=== PATIENT | female | born 1935 | race Caucasian/White ===

== ENCOUNTER → 2017-04-14 | Outpatient (CLI) | payer OTHER, MEDICARE ==
[2017-04-14 16:06] LABS: HEMATOCRIT 29.8 % (37-47); MEAN CELL VOLUME 91.1 fL (80-100); MEAN CORPUSCULAR HEMOGLOBIN 30.3 pg (25-34); MEAN CORPUSCULAR HGB CONC 33.2 g/dl (32-36); MEAN PLATELET VOLUME 10.4 fL (7.4-10.4); PLATELET COUNT 249 K/uL (130-400); RED BLOOD COUNT 3.27 M/uL (4.2-5.4); WHITE BLOOD COUNT 6.31 K/uL (4.8-10.8)
[2017-04-14 16:15] LABS: FERRITIN 20.7 ng/ml (8.0-388.0)
== END | disposition home or self-care (01) ==
LOC: C.LAB1850 14:59
PROVIDERS: ATTEND Internal Medicine
DX: D64.9 Anemia, unspecified (principal)

== ENCOUNTER → 2017-04-17 | Outpatient (CLI) | payer OTHER, MEDICARE ==
--- NOTE | 2017-04-29 13:19 | CODING QUERY MEDICAL NECESSITY ---
CQSUPPORTING DIAGNOSIS NEEDED A supporting diagnosis is required for the test/procedure performed on this patient in order for us to be reimbursed by the patient's insurance. Please provide a supporting diagnosis for the following test/procedure listed below next to the test name along with your signature. *If there is no additional diagnosis for this patient that would support the following test/procedure please document that below next to the test/procedure. Test(s)/Procedure(s) that require a supporting diagnosis: DOS 04/17/17 VITAMIN B12 TEST Provider Signature: Date: Thank you [facility] Once completed, please kindly fax back to [phone] For questions please call [phone]
== END | disposition home or self-care (01) ==
LOC: C.LAB1850 10:32
PROVIDERS: ATTEND Internal Medicine
DX: D64.9 Anemia, unspecified (principal)

== ENCOUNTER → 2017-07-07 | Outpatient (CLI) | payer OTHER, MEDICARE | END | disposition home or self-care (01) | LOC: C.LABSPEC 17:06 | PROVIDERS: ATTEND Podiatrist Foot & Ankle Surgery | DX: L60.0 Ingrowing nail (principal) ==

== ENCOUNTER → 2017-10-22 | Outpatient (CLI) | payer OTHER, MEDICARE ==
[2017-10-22 12:18] LABS: HEMATOCRIT 37.9 % (37-47); HEMOGLOBIN 12.5 g/dL (12.0-16.0); MEAN CELL VOLUME 84.8 fL (80-100); PLATELET COUNT 201 K/uL (130-400); RED CELL DISTRIBUTION WIDTH CV 14.4 % (11.5-14.5); RED CELL DISTRIBUTION WIDTH SD 44.4 fL (36.4-46.3); WHITE BLOOD COUNT 5.31 K/uL (4.8-10.8)
[2017-10-22 17:03] LABS: ALBUMIN 3.6 gm/dl (3.4-5.0); ALT/SGPT 18 U/L (12-78); BLOOD UREA NITROGEN 21 mg/dl (7-18); CALCIUM 9.2 mg/dl (8.5-10.1); CARBON DIOXIDE 27 mmol/L (21-32); CHOLESTEROL 147 mg/dl (0-200); CREATININE 1.04 mg/dl (0.60-1.20); GLUCOSE 119 mg/dl (70-99); POTASSIUM 4.3 mmol/L (3.5-5.1); SODIUM 140 mmol/L (136-145)
[2017-10-22 17:06] LABS: ALKALINE PHOSPHATASE 83 U/L (45-117); AST/SGOT 17 U/L (15-37); LDL CHOLESTEROL CALCULATED 68 mg/dl; TOTAL PROTEIN 7.3 gm/dl (6.4-8.2)
== END | disposition home or self-care (01) ==
LOC: C.LAB1850 10:55
PROVIDERS: ATTEND Internal Medicine
DX: Z00.00 Encounter for general adult medical examination without abnormal findings (principal); E78.5 Hyperlipidemia, unspecified; D64.9 Anemia, unspecified; I10 Essential (primary) hypertension; I25.10 Atherosclerotic heart disease of native coronary artery without angina pectoris

== ENCOUNTER → 2018-02-24 | Outpatient (CLI) | payer OTHER, MEDICARE ==
--- NOTE | 2018-03-03 14:42 | MAMMOGRAPHY REPORT ---
UNILATERAL RIGHT DIGITAL SCREENING MAMMOGRAM TOMOSYNTHESIS WITH CAD: 02/24/2018 CLINICAL HISTORY: Asymptomatic. Personal history of breast cancer. TECHNIQUE: The study was acquired using full field digital technology and interpreted from soft copy. Breast tomosynthesis in addition to standard 2D mammography was performed. Current study was also ev aluated with a Computer Aided Detection (CAD) system. COMPARISON: Comparison is made to exams dated: 11/29/2016 mammogram, 11/29/2015 mammogram, 11/02/2014 mamm ogram, 10/12/2013 mammogram, and 09/28/2012 mammogram - [facility]. BREAST COMPOSITION: There are scattered areas of fibroglandular density in right breast. FINDINGS: There are stable benign rim calcifications in the right breast. Stable asymmetry in the sl ightly lateral, middle one third of the right breast on the cc view. No suspicious mass, architectura l distortion or cluster of microcalcifications is seen. IMPRESSION: ACR BI-RADS CATEGORY 1: NEGATIVE There is no mammographic evidence of malignancy. A 1 year screening mammogram is recommended.( [id number]) The patient will receive written notification of the results. Some breast cancers are not detected with mammography. A negative mammographic report should not marques y biopsy if a clinically suggestive mass is present. Jena Alejo M.D. ay/:03/02/2018 16:33:56 [employer]isher: NILES Rascon)([place]), [facility] letter sent: Normal 1/2 BI-RADS Code: ACR BI-RADS Category 1: Negative
== END | disposition home or self-care (01) ==
LOC: C.MAMM 12:33
PROVIDERS: ATTEND Obstetrics & Gynecology
DX: Z12.31 Encounter for screening mammogram for malignant neoplasm of breast (principal); Z85.3 Personal history of malignant neoplasm of breast; Z90.12 Acquired absence of left breast and nipple

== ENCOUNTER 2018-08-01 16:58 | Inpatient (IN) ==
[2018-08-01] MEDS ORDERED: SODIUM CHLORIDE 0.9% 500 ML IV STA (17:44)
[2018-08-01 18:01] LABS: Basophils # (auto) 0.02 K/uL (0-0.2); Basophils % (auto) 0.3 %; Eosinophils # (auto) 0.19 K/uL (0-0.5); Eosinophils % (auto) 2.8 %; Hematocrit (blood only) 37.1 % (37-47); Hemoglobin 11.9 g/dL (12.0-16.0); Immature Granulocytes # (auto) 0.01 K/uL (0.00-0.02); Immature Granulocytes % (auto) 0.1 %; Lymphocytes # (auto) 1.56 K/uL (1.2-3.4); Lymphocytes % (auto) 22.8 %; Mean Corpuscular Hgb Conc 32.1 g/dL (32-36); Mean Corpuscular Volume 85.7 fL (80-100); Monocytes # (auto) 1.16 K/uL (0.11-0.59); Platelet Count 207 K/uL (130-400); RDW Coefficient of Variation 14.3 % (11.5-14.5); RDW Standard Deviation 44.3 fL (36.4-46.3); Red Blood Count 4.33 M/uL (4.2-5.4); White Blood Count 6.84 K/uL (4.8-10.8)
[2018-08-01 18:05] LABS: BUN Creatinine Ratio 18.4 (10-20); Blood Urea Nitrogen 18 mg/dl (7-18); Carbon Dioxide 28 mmol/L (21-32); Chloride 106 mmol/L (98-107); Creatinine Clr Calc Pharmacy 38.6 ml/min; Est GFR (African American) 61.9; Est GFR (Non-African American) 53.4; Glucose 103 mg/dl (70-99); Magnesium 2.2 mg/dl (1.8-2.4); Potassium 3.7 mmol/L (3.5-5.1); Sodium 138 mmol/L (136-145)
[2018-08-01 18:14] LABS: INR 1.1 (0.9-1.1); Partial Thromboplastin Time 26.7 Seconds (21.0-31.0); Prothrombin Time 10.6 Seconds (9.0-12.0)
[2018-08-01 18:16] LABS: Phosphorus 3.2 mg/dl (2.5-4.9); Troponin I < 0.015 ng/ml (0-0.045)
[2018-08-01 18:19] LABS: iSTAT Hemoglobin 12.6 g/dl (12.0-16.0); iSTAT Ionized Calcium 1.16 mmol/l (1.12-1.32)
[2018-08-01] MEDS ORDERED: IOVERSOL 100ml IV PRN (18:39)
[2018-08-01] MEDS ORDERED: DEXAMETHASONE SOD PHOSPHATE 10 MG in SYRINGE 0 ML IV STA (18:43)
[2018-08-01] MEDS ORDERED: DiphenhydrAMINE HCL 50 MG/ML VIAL IV STA (18:43)
--- NOTE | 2018-08-01 18:48 | CT Scan Report ---
CT head/brain wo con CT DOSE: HISTORY: Mental status change Stroke evaluation TECHNIQUE: Multiaxial CT images of the head were performed without the use of intravenous contrast. A dose lowering technique was utilized adhering to the principles of ALARA. Comparison: None. Findings: The paranasal sinuses and mastoid air cells are clear. Findings consistent with a subacute infarct of the left head of the caudate nucleus. Additional areas of chronic small vessel change are noted throughout both cerebral hemispheres. No evidence for acute intracranial hemorrhage. Ventricular system is midline. Impression: 1. Subacute infarct head of the caudate nucleus and left paraventricular region. 2. Age-related chronic small vessel change throughout both cerebral hemispheres. 3. No evidence for acute intracranial hemorrhage. The above report was generated using voice recognition software. It may contain grammatical, syntax or spelling errors. Electronically signed by: Wade Quesada M.D. 08/01/2018 6:46 PM
[2018-08-01] MEDS ORDERED: ASPIRIN CHEW 324 MG PO STA (18:51)
[2018-08-01] MEDS ORDERED: DEXAMETHASONE SOD INJ 4 MG/ML VIAL ONE (18:52)
--- NOTE | 2018-08-01 18:53 | CT Scan Report ---
CT angio head w con HISTORY: Stroke right facial droop TECHNIQUE: Multiaxial CT angiography of the head was performed IV contrast: None. Maximum in tensity projection images were also obtained. A dose lowering technique was utilized adhering to the principles of ALARA. COMPARISON: None. Findings: Findings consistent with mild scattered atherosclerotic narrowing of the mid to distal aspe cts of all major vessels. High degree of stenosis is not felt to be present. There is considerable plaque formation of the internal carotid arteries at the cavernous sinus but na rrowing does not exceed 50%. The vertebral basilar system is considered patent. The right vertebral artery is dominant presumably on a congenital basis. There is moderate atherosclerotic narrowing of the distal aspect of the basila r. Posterior cerebral vasculature is relatively small in terms of caliber. IMPRESSION: 1. Diffuse global atherosclerotic change and moderate multifocal narrowing of the intracranial vascul ature. 2. This includes anterior middle and posterior cerebral circulation as well as basilar. 3. No evidence for aneurysm. 4. No evidence for a high-grade or critical stenosis. The above report was generated using voice recognition software. It may contain grammatical, syntax or spelling errors. Electronically signed by: Wade Quesada M.D. 08/01/2018 6:52 PM
--- NOTE | 2018-08-01 19:00 | CT Scan Report ---
CT angio neck with con HISTORY: Mental status change. Stroke. right facial droop TECHNIQUE: Multiaxial CT angiography of the neck was performed IV contrast: 50 cc All measurem ents were calculated based on NASCET criteria. Maximum intensity projection images were also obtaine d. A dose lowering technique was utilized adhering to the principles of ALARA. COMPARISON STUDY: None. FINDINGS: The aortic arch and proximal great vessels are widely patent. The carotid systems show no major stenotic process within the soft tissue neck region. Minimal scattered plaque formation is present. The vertebral basilar system is remarkable for what appears to be a focal dissection of the left vert ebral vessel on image 177. Reconstructed images in the sagittal and coronal planes, however suggest t his relates to vessel tortuosity rather than dissection. There is no significant stenotic process of the bulk of the vertebral basilar system. There is modera te atherosclerotic narrowing of the distal basilar artery IMPRESSION: No significant stenosis, occlusion, or dissection identified within the carotid or vertebral arteries . Mild atherosclerotic change of the distal basilar artery estimated at 50% narrowing. No evidence fo r a high-grade stenotic process. The above report was generated using voice recognition software. It may contain grammatical, syntax or spelling errors. Electronically signed by: Wade Quesada M.D. 08/01/2018 6:58 PM
[2018-08-01] MEDS ORDERED: METOPROLOL TARTRATE 1 MG/ML VIAL IV STA (20:09)
[2018-08-01] MEDS ORDERED: METOPROLOL TARTRATE 1 MG/ML VIAL IV ONE (20:12)
[2018-08-01] MEDS ORDERED: CLOPIDOGREL BISULFATE 75 MG TAB PO ONE (20:18)
--- NOTE | 2018-08-01 20:27 | History & Physical Report ---
Date of Service August 01, 2018 Assessment & Plan (1) Stroke: 83-year-old female was admitted on 01 August 2018 for stroke symptoms beginning day prior to admission. CVA: Complained of right-sided facial asymmetry and mild aphasia beginning day prior to admit. CT head notes subacute caudate and left periventricular regional infarcts. Normal glucose, negative troponin, normal TSH. - In ED was treated with aspirin 81 mg and Benadryl. - We will continue aspirin 81 mg, add Plavix 75 mg daily, and obtain an MRI/MRA as well as echocardiogram. - Neurology consult placed. Cough: Mild dry cough for about 48 hours. Denies fever, chest pain, shortness of breath. Here breathing comfortably, clear to auscultation, normal room SpO2. Will monitor initially. Hypertension: History of the same. At home is on amlodipine 5 mg every morning and metoprolol succinate 50 mg twice daily. However, did not take for 48 hours prior to admit. Admit BP 214/115. - We will treat acutely with metoprolol 2.5 g IV x1. Goal blood pressure around SBP 180 initially. - Will allow for some permissive HTN in setting of likely recent CVA. - Otherwise continue home meds. Anemia: Admit Hb 11.9, MCV 85. Comparison is 12.8 in Feb 2018. History of same , seen by [facility] Apr 2017. Ongoing medical issues: - Hyperlipidemia: At home is on pravastatin. --- Will change to Lipitor 40 mg daily. - CAD and palpitaitons: Prior CABG years ago. Normally on aspirin 81 mg, but the patient did not take 48 hours prior to admit. - GERD: At home is on omeprazole 20 mg every morning. Continue here. - History of breast and uterine cancer: S/p left mastectomy as well as hysterectomy/BSO. Code status: Full code. Diet: Heart healthy, though bedside speech swallow eval pending. DVT prophy: Lovenox and SCDs. PT/OT: Ordered. Disbo: Admit to telemetry. (2) Cough: (3) Hypertension: (4) Anemia: (5) Hyperlipidemia: (6) CAD (coronary artery disease): (7) GERD (gastroesophageal reflux disease): History of Present Illness Primary Care Provider: Eulogio Sifuentes MD 83-year-old female says that roughly around waking on Friday 04Jan a.m. she noticed some right-sided facial droop as well as difficulty speaking. No known history of the same. She says both seem to have progressively improved until present. She says over the past 48 hours she thought she had "the flu" consisting of feeling tired all over as well as a cough occasionally productive of greenish mucus. She denies any known fevers, chest pain, shortness of breath , or sick contacts. However, because she was not feeling very well, she says she did not take any of her home meds to include her aspirin, amlodipine, or metoprolol. She also notes she is quite stressed because her terminally ill just returned home from [facility]. No other acute patient concerns. Past medical history includes hypertension, breast and uterine cancer, CAD. Past surgical history includes left mastectomy, hysterectomy and BSO, CABG, cataract surgery. Social history includes never smoking. Denies alcohol use. Lives at home with . Is under great stress due to her 's terminal illness. Allergies Allergy/AdvReac Type Severity Reaction Status Date / Time Iodinated Contrast- Oral and Allergy Hives Unverified 08/01/18 18:08 IV Dye Home Medications Home Medications Medication Instructions Recorded Confirmed Type amlodipine [Norvasc] 5 mg PO QAM 08/01/18 08/01/18 History metoprolol succinate 50 mg PO BID 08/01/18 08/01/18 History omeprazole 20 mg PO QAM 08/01/18 08/01/18 History pravastatin [Pravachol] 40 mg PO QAM 08/01/18 08/01/18 History Past Med/Surg History Medical History Breast cancer (Resolved) Hypertension (Chronic) GERD (gastroesophageal reflux disease) Hyperlipidemia Uterine cancer Surgical History H/O heart bypass surgery Cataract History of left mastectomy Social History marital status: Current Living Situation: Spouse current occupational status: retired Other Information That Helps Us Care for You: No Feels Safe at Home: Yes Safety Concerns: Feels Safe At This Time Smoking Status: Never smoker Do You Dip or Chew Tobacco: No Second Hand Exposure: No Tobacco Cessation Education Requested by Patient: No Hx Alcohol Use: No Hx Substance Use: No Beliefs That Will Affect Care: None Preferred Language: Wolof Communication Ability: Impaired Court Bailiff Required: No Review of Systems Constitutional: Denies fevers, chills, focal weakness Eyes: Denies any visual loss or diplopia ENT: Denies any ear/nose/throat pain or difficulty speaking or swallowing Respiratory: Denies any dyspnea, hemoptysis Cardiovascular: Denies any chest pain or feeling of edema Gastrointestinal: Denies any abdominal pain, nausea/vomiting/diarrhea Musculoskeletal: Denies any acute extremity pains, myalgias Skin: Denies any known acute rashes or lesions Neuro: See HPI. Denies any headache, visual changes, difficulty swallowing, or focal difficulty moving any extremities. Psych: Denies any recent depression. Physical Exam 2 Vital Signs (Past 24 Hours): Last Vital Signs Temp 37.1 C 08/01/18 17:07 Pulse 91 H 08/01/18 20:00 Resp 18 08/01/18 20:00 BP 176/129 H 08/01/18 20:00 Pulse Ox 94 08/01/18 20:00 Physical Exam: GENERAL: Awake, alert, well-appearing with exception of neuro deficits, in no acute distress HENT: Normocephalic, atraumatic. Oropharynx unremarkable. EYES: Normal conjunctiva. Sclera non-icteric. NECK: Inspection normal. Non-tender. Supple and full ROM. No nuchal rigidity. CARDIAC: +S1S2 RRR, no murmurs. RESPIRATORY: Clear to auscultation. No wheezes or rales. Normal respiratory effort. No present cough. GI: +BS, soft, non-distended. No tenderness to palpation. No rebound or guarding. EXTREMITIES: No pedal edema or calf tenderness. Moving all extremities naturally and easily. NEURO: - Mild baseline right facial droop accentuated with attempts to smile. - Question of a mild dysphonia. Tolerating oral secretions easily. - Normal tongue movement. No drift. - Some RUE and RLE 4-5 weakness compared to left sided 5 out of 5 strength. Distal sensation intact. Lines: PIV. Results & Data Laboratory Results 08/01/18 08/01/18 08/01/18 Range/Units 17:56 17:28 17:28 WBC (4.8-10.8) K/uL RBC (4.2-5.4) M/uL Hgb (12.0-16.0) g/dL POC Hgb 12.6 (12.0-16.0) g/dl Hct (37-47) % POC Hct 37 (37-47) % MCV (80-100) fL MCH (25-34) pg MCHC (32-36) g/dL RDW Std Deviation (36.4-46.3) fL RDW Coeff of Margaux (11.5-14.5) % Plt Count (130-400) K/uL MPV (7.4-10.4) fL Immature Gran % (Auto) % Neut % (Auto) % Lymph % (Auto) % [place] % (Auto) % Eos % (Auto) % Baso % (Auto) % Immature Gran # (Auto) (0.00-0.02) K/uL Neut # (Auto) (1.4-6.5) K/uL Lymph # (Auto) (1.2-3.4) K/uL [place] # (Auto) (0.11-0.59) K/uL Eos # (Auto) (0-0.5) K/uL Baso # (Auto) (0-0.2) K/uL PT 10.6 (9.0-12.0) Seconds INR 1.1 (0.9-1.1) APTT 26.7 (21.0-31.0) Seconds PTT Ratio 1.0 POC Sodium 141 (135-144) mEq/L Sodium 138 (136-145) mmol/L POC Potassium 3.7 (3.3-5.0) mEq/L Potassium 3.7 (3.5-5.1) mmol/L POC Chloride 103 (101-112) mEq/L Chloride 106 (98-107) mmol/L Carbon Dioxide 28 (21-32) mmol/L POC Total CO2 24 (24-31) mEq/l Anion Gap 4.0 (3-11) POC Anion Gap 19.0 (16-25) mmol/L POC BUN 18 (7-18) mg/dl BUN 18 (7-18) mg/dl Creatinine 0.99 (0.6-1.2) mg/dl POC Creatinine 1.0 (0.6-1.3) mg/dl Est Cr Clr Drug Dosing 38.6 ml/min Est GFR ( Amer) 61.9 Est GFR (Non-Af Amer) 53.4 BUN/Creatinine Ratio 18.4 (10-20) Glucose 103 H (70-99) mg/dl POC Glucose (70-99) POC Glucose (other) 106 H (70-99) mg/dl Calcium 9.0 (8.5-10.1) mg/dl POC Ioniz Calcium Irene 1.16 (1.12-1.32) mmol/l Phosphorus 3.2 (2.5-4.9) mg/dl Magnesium 2.2 (1.8-2.4) mg/dl Troponin I < 0.015 (0-0.045) ng/ml TSH 2.660 (0.300-4.500) uIu/ml 08/01/18 08/01/18 Range/Units 17:28 17:28 WBC 6.84 (4.8-10.8) K/uL RBC 4.33 (4.2-5.4) M/uL Hgb 11.9 L (12.0-16.0) g/dL POC Hgb (12.0-16.0) g/dl Hct 37.1 (37-47) % POC Hct (37-47) % MCV 85.7 (80-100) fL MCH 27.5 (25-34) pg MCHC 32.1 (32-36) g/dL RDW Std Deviation 44.3 (36.4-46.3) fL RDW Coeff of Margaux 14.3 (11.5-14.5) % Plt Count 207 (130-400) K/uL MPV 11.0 H (7.4-10.4) fL Immature Gran % (Auto) 0.1 % Neut % (Auto) 57.0 % Lymph % (Auto) 22.8 % [place] % (Auto) 17.0 % Eos % (Auto) 2.8 % Baso % (Auto) 0.3 % Immature Gran # (Auto) 0.01 (0.00-0.02) K/uL Neut # (Auto) 3.90 (1.4-6.5) K/uL Lymph # (Auto) 1.56 (1.2-3.4) K/uL [place] # (Auto) 1.16 H (0.11-0.59) K/uL Eos # (Auto) 0.19 (0-0.5) K/uL Baso # (Auto) 0.02 (0-0.2) K/uL PT (9.0-12.0) Seconds INR (0.9-1.1) APTT (21.0-31.0) Seconds PTT Ratio POC Sodium (135-144) mEq/L Sodium (136-145) mmol/L POC Potassium (3.3-5.0) mEq/L Potassium (3.5-5.1) mmol/L POC Chloride (101-112) mEq/L Chloride (98-107) mmol/L Carbon Dioxide (21-32) mmol/L POC Total CO2 (24-31) mEq/l Anion Gap (3-11) POC Anion Gap (16-25) mmol/L POC BUN (7-18) mg/dl BUN (7-18) mg/dl Creatinine (0.6-1.2) mg/dl POC Creatinine (0.6-1.3) mg/dl Est Cr Clr Drug Dosing ml/min Est GFR ( Amer) Est GFR (Non-Af Amer) BUN/Creatinine Ratio (10-20) Glucose (70-99) mg/dl POC Glucose 107 H (70-99) POC Glucose (other) (70-99) mg/dl Calcium (8.5-10.1) mg/dl POC Ioniz Calcium Irene (1.12-1.32) mmol/l Phosphorus (2.5-4.9) mg/dl Magnesium (1.8-2.4) mg/dl Troponin I (0-0.045) ng/ml TSH (0.300-4.500) uIu/ml Diagnostic Findings CT head/brain wo con Impression: 1. Subacute infarct head of the caudate nucleus and left paraventricular region. 2. Age-related chronic small vessel change throughout both cerebral hemispheres. 3. No evidence for acute intracranial hemorrhage. CT angio head w con IMPRESSION: 1. Diffuse global atherosclerotic change and moderate multifocal narrowing of the intracranial vasculature. 2. This includes anterior middle and posterior cerebral circulation as well as basilar. 3. No evidence for aneurysm. 4. No evidence for a high-grade or critical stenosis. CT angio neck with con IMPRESSION: No significant stenosis, occlusion, or dissection identified within the carotid or vertebral arteries. Mild atherosclerotic change of the distal basilar artery estimated at 50% narrowing. No evidence for a high-grade stenotic process. Code Status & VTE Plan Code Status Full code VTE Prophylaxis Plan VTE Prophylaxis will be ordered: Yes Supervising Physician Co-Signing Physician Notes Pt seen/examined in conjunction with resident MD Shahriar Martel. Orders and plan of admission formaulated with resident. 83 y/o F Hx HTN, breast and uterine CA, CAD - post CABG. Presenting > 24 hours after onset of R weakness, facial droop and mild expressive aphasia. Markedly elevated BP on admission. CTA: Subacute infarct head of the caudate nucleus and left paraventricular region. Symptoms persist on admission. OE AAO x 3 S1,2 R CTAB NT, ND No CCE + R facial droop - pronounced. Speech is relatively clear, AAO, R strength maintained in upper ext, decreased in lower, coord impaired in both. P: Post-CVA - assined to telemetry, ASA, Plavix, increase statin does - neuro consult, PT/OT AM. She was markedly hypertensive - SBP 220 - on arrival - we have provided a small dose of IV B stefano and will repeat to a target of approximately 180 The case was discussed with the ER attending, resident, pt and daughters at bedside Resident Activity Tracking Resident Involvement: Resident Care Provided Care Provided: Adult [facility] _ (1) Stroke CVA mechanism: unspecified Laterality of affected vessel: Precerebral and cerebral artery: Qualified Code(s): I63.9 - Cerebral infarction, unspecified
[2018-08-01] MEDS ORDERED: ONDANSETRON INJ 2 MG/ML 2 ML VIAL IV PRN (21:24)
[2018-08-01] MEDS ORDERED: ACETAMINOPHEN 325 MG TAB PO PRN (21:24)
[2018-08-01] MEDS ORDERED: PHARMACIST DISCHARGE MED REC CONSULT PRN (21:24)
[2018-08-01] MEDS ORDERED: POLYETHYLENE (MIRALAX) 17 GM PACK PO PRN (21:24)
--- NOTE | 2018-08-02 02:18 | Emergency Department Note ---
Entered by Rosa Ge acting as a scribe for Librado Machado MD History of Present Illness General Chief complaint: Stroke/CVA Symptoms Stated complaint: POSSIBLE STROKE Time Seen by Provider: 08/01/18 17:19 Source: patient and family (daughter) Mode of arrival: ambulatory Limitations: no limitations History of Present Illness Provider complaint: Stroke symptoms Onset (ago): day(s) (yesterday afternoon) Location: head Radiation: non-radiation Pain Consistency: + other (worsening) Quality: + other (stroke symptoms) Relieved By: + none Associated symptoms: + cough and + other (Additional symptoms: dizziness, right- sided facial asymmetry, quiet and difficult speech, lethargy. Denies: congestion , diarrhea); no confusion, no fever/chills and no nausea/vomiting Treatments prior to arrival: none The patient is an 83 year old female with a history of hypertension, breast cancer 28 years ago, and a heart bypass who presents to the Emergency Room with complaints of worsening stroke symptoms starting yesterday afternoon. The patient reports that she began experiencing dizziness, right-sided facial asymmetry, and quiet speech secondary to "difficulty getting words out." Her daughter also notes that the patient has been more lethargic but does not seem confused. The patient further complains of a cough, to which her daughter adds that the patient had bronchitis 2 months ago, but denies any congestion, nausea , vomiting, fevers, and diarrhea. The patient notes that she takes baby aspirin daily, although she forgot to yesterday and today, and she states that she does not take any blood thinners. She also denies a history of strokes and diabetes. Home Medications Home Medications Medication Instructions Recorded Confirmed Type amlodipine [Norvasc] 5 mg PO QAM 08/01/18 08/01/18 History metoprolol succinate 50 mg PO BID 08/01/18 08/01/18 History omeprazole 20 mg PO QAM 08/01/18 08/01/18 History pravastatin [Pravachol] 40 mg PO QAM 08/01/18 08/01/18 History Allergies Allergy/AdvReac Type Severity Reaction Status Date / Time Iodinated Contrast- Oral and Allergy Hives Unverified 08/01/18 18:08 IV Dye Past Med/Surg History Medical History Breast cancer (Resolved) Hypertension (Chronic) GERD (gastroesophageal reflux disease) Hyperlipidemia Uterine cancer Surgical History H/O heart bypass surgery Cataract History of left mastectomy Social History marital status: Current Living Situation: Spouse current occupational status: retired Other Information That Helps Us Care for You: No Feels Safe at Home: Yes Safety Concerns: Feels Safe At This Time Smoking Status: Never smoker Do You Dip or Chew Tobacco: No Second Hand Exposure: No Tobacco Cessation Education Requested by Patient: No Hx Alcohol Use: No Hx Substance Use: No Beliefs That Will Affect Care: None Preferred Language: Maltese Communication Ability: Impaired Band Saw Marker Required: No Review of Systems See HPI for pertinent positives & negatives. and A total of 10 systems reviewed and were otherwise negative Physical Exam Vital Signs Vital Signs - 24 hr 08/01/18 17:07 08/01/18 17:25 08/01/18 17:36 Temperature 37.1 C Temperature Source Oral Sepsis Recent Fever Within 48 Hours No Sepsis New/Unexplained Change in Mental Status No Sepsis Action Taken by Nursing No Action Required Pulse Rate 97 H Pulse Rate [Apical] 99 H Pulse Rhythm [Apical] Pulse Strength [Apical] Respiratory Rate 18 20 Respiratory Effort / Characteristics Respiratory Depth Normal Normal Respiratory Pattern Blood Pressure 197/98 H Blood Pressure [Right Arm] 198/92 H Blood Pressure Mean 131 Blood Pressure Mean [Right Arm] 127 Blood Pressure Position [Right Arm] Pulse Oximetry 97 96 97 Oxygen Delivery Method Room Air Room Air Room Air 08/01/18 19:00 08/01/18 20:00 08/01/18 20:21 Temperature Temperature Source Sepsis Recent Fever Within 48 Hours Sepsis New/Unexplained Change in Mental Status Sepsis Action Taken by Nursing Pulse Rate 81 Pulse Rate [Apical] 94 H 91 H Pulse Rhythm [Apical] Pulse Strength [Apical] Respiratory Rate 22 18 Respiratory Effort / Characteristics Respiratory Depth Respiratory Pattern Blood Pressure 192/111 H Blood Pressure [Right Arm] 198/99 H 176/129 H Blood Pressure Mean Blood Pressure Mean [Right Arm] 132 144 Blood Pressure Position [Right Arm] Pulse Oximetry 97 94 Oxygen Delivery Method Room Air 08/01/18 20:41 08/01/18 21:31 08/01/18 23:27 Temperature 36.8 C 36.5 C Temperature Source Oral Oral Sepsis Recent Fever Within 48 Hours Sepsis New/Unexplained Change in Mental Status Sepsis Action Taken by Nursing Pulse Rate 80 Pulse Rate [Apical] 89 82 Pulse Rhythm [Apical] Regular Pulse Strength [Apical] Normal Respiratory Rate 20 18 17 Respiratory Effort / Characteristics Non-Labored Spontaneous Respiratory Depth Normal Respiratory Pattern Regular Blood Pressure 197/93 H Blood Pressure [Right Arm] 156/80 H 150/72 H Blood Pressure Mean Blood Pressure Mean [Right Arm] 105 98 Blood Pressure Position [Right Arm] Lying Lying Pulse Oximetry 93 94 94 Oxygen Delivery Method Room Air Room Air Room Air 08/02/18 03:03 Temperature 36.4 C L Temperature Source Oral Sepsis Recent Fever Within 48 Hours Sepsis New/Unexplained Change in Mental Status Sepsis Action Taken by Nursing Pulse Rate Pulse Rate [Apical] 82 Pulse Rhythm [Apical] Pulse Strength [Apical] Respiratory Rate 17 Respiratory Effort / Characteristics Respiratory Depth Respiratory Pattern Blood Pressure Blood Pressure [Right Arm] 153/75 H Blood Pressure Mean Blood Pressure Mean [Right Arm] 101 Blood Pressure Position [Right Arm] Lying Pulse Oximetry 97 Oxygen Delivery Method Room Air GENERAL: Awake, alert, well-appearing, in no distress HENT: Normocephalic, atraumatic. Oropharynx with dry mucous membranes and otherwise unremarkable. EYES: Normal conjunctiva. Sclera non-icteric. NECK: Supple. No nuchal rigidity. FROM. No JVD. RESPIRATORY: Clear to auscultation. CARDIAC: Regular rate, normal rhythm. Extremities warm and well perfused. Pulses equal. ABDOMEN: Soft, non-distended. No tenderness to palpation. No rebound or guarding. No masses. RECTAL: Deferred. MUSCULOSKELETAL: Chest examination reveals no tenderness. The back is symmetrical on inspection without obvious abnormality. There is no CVA tenderness to palpation. No joint edema. LOWER EXTREMITIES: Calves are equal size bilaterally and non-tender. No edema. No discoloration. NEURO: Normal sensorium. Right lower facial paresis. Normal cerebellar exam: intact finger to nose, alternating palms, heel to helm. 5/5 strength in SILT x4 extremities. SKIN: No rash or jaundice noted. Course 1733: Past medical records reviewed. The patient was evaluated in room B2, and a complete history and physical examination were performed. 1901: I reviewed the patient's case with resident Dr. Martel. 1945: I reviewed the patient's case with Dr. Johnson - Hospitalist, [facility]. Dr. Johnson will evaluate the patient for further management. Consultations Consultation #1: I reviewed the patient's case with resident Dr. Martel. Time: 19:02 Consultation #2: I reviewed the patient's case with Dr. Johnson - Hospitalist, [facility]. Dr. Johnson will evaluate the patient for further management. Time: 19:46 Administered Medications Discontinued Medications Aspirin (Aspirin) 81 mg PO NOW STA Stop: 08/01/18 18:52 Last Admin: 08/01/18 19:03 Dose: 81 mg Clopidogrel Bisulfate (Plavix) 75 mg PO NOW ONE Stop: 08/01/18 20:19 Last Admin: 08/01/18 20:26 Dose: 75 mg Dexamethasone (Decadron) Confirm Administered Dose 4 mg .ROUTE .STK-MED ONE Stop: 08/01/18 18:53 Last Admin: 08/01/18 18:55 Dose: Not Given Diphenhydramine HCl (Benadryl) 12.5 mg IV NOW STA Stop: 08/01/18 18:44 Last Admin: 08/01/18 18:53 Dose: 12.5 mg Sodium Chloride (Nss) 500 mls @ 125 mls/hr IV .Q4H STA Stop: 08/01/18 21:43 Last Infusion: 08/01/18 22:03 Dose: 0 mls/hr Admin: 08/01/18 18:03 Dose: 125 mls/hr Dexamethasone Sodium Phosphate (10 mg/ Syringe) 2.5 mls @ 1 mls/min IV NOW STA Stop: 08/01/18 18:45 Last Admin: 08/01/18 19:11 Dose: 1 mls/min Ioversol (Optiray 320 100ml) 92 ml IV ONCE PRN PRN Reason: Interaction Checking Stop: 08/05/18 18:38 Last Admin: 08/01/18 18:40 Dose: 92 ml Metoprolol Tartrate (Lopressor) 2.5 mg IV NOW STA Stop: 08/01/18 20:10 Last Admin: 08/01/18 20:21 Dose: 2.5 mg Medical Decision Making Differential Diagnosis Differential includes acute coronary syndrome, myocardial infarction, CVA, TIA , anemia, infection, pneumonia, UTI, pyelonephritis, poor nutrition, dehydration , electrolyte disturbance,hypoglycemia. Medical Records Attestation: I reviewed the patient's medical records. Home Medications Current Medication List: was personally reviewed by me Laboratory Data Attestation: I reviewed the patient's lab results. Result diagrams: 08/01/18 17:28 08/01/18 17:28 Lab Results 08/01/18 08/01/18 08/01/18 Range/Units 17:28 17:28 17:28 WBC 6.84 (4.8-10.8) K/uL RBC 4.33 (4.2-5.4) M/uL Hgb 11.9 L (12.0-16.0) g/dL POC Hgb (12.0-16.0) g/dl Hct 37.1 (37-47) % POC Hct (37-47) % MCV 85.7 (80-100) fL MCH 27.5 (25-34) pg MCHC 32.1 (32-36) g/dL RDW Std Deviation 44.3 (36.4-46.3) fL RDW Coeff of Margaux 14.3 (11.5-14.5) % Plt Count 207 (130-400) K/uL MPV 11.0 H (7.4-10.4) fL Immature Gran % (Auto) 0.1 % Neut % (Auto) 57.0 % Lymph % (Auto) 22.8 % [place] % (Auto) 17.0 % Eos % (Auto) 2.8 % Baso % (Auto) 0.3 % Immature Gran # (Auto) 0.01 (0.00-0.02) K/uL Neut # (Auto) 3.90 (1.4-6.5) K/uL Lymph # (Auto) 1.56 (1.2-3.4) K/uL [place] # (Auto) 1.16 H (0.11-0.59) K/uL Eos # (Auto) 0.19 (0-0.5) K/uL Baso # (Auto) 0.02 (0-0.2) K/uL PT 10.6 (9.0-12.0) Seconds INR 1.1 (0.9-1.1) APTT 26.7 (21.0-31.0) Seconds PTT Ratio 1.0 POC Sodium (135-144) mEq/L Sodium (136-145) mmol/L POC Potassium (3.3-5.0) mEq/L Potassium (3.5-5.1) mmol/L POC Chloride (101-112) mEq/L Chloride (98-107) mmol/L Carbon Dioxide (21-32) mmol/L POC Total CO2 (24-31) mEq/l Anion Gap (3-11) POC Anion Gap (16-25) mmol/L POC BUN (7-18) mg/dl BUN (7-18) mg/dl Creatinine (0.6-1.2) mg/dl POC Creatinine (0.6-1.3) mg/dl Est Cr Clr Drug Dosing ml/min Est GFR ( Amer) Est GFR (Non-Af Amer) BUN/Creatinine Ratio (10-20) Glucose (70-99) mg/dl POC Glucose 107 H (70-99) POC Glucose (other) (70-99) mg/dl Calcium (8.5-10.1) mg/dl POC Ioniz Calcium Irene (1.12-1.32) mmol/l Phosphorus (2.5-4.9) mg/dl Magnesium (1.8-2.4) mg/dl Troponin I (0-0.045) ng/ml TSH (0.300-4.500) uIu/ml Urine Color Urine Appearance (Clear) Urine pH (4.5-7.5) Ur Specific [place] (1.000-1.030) Urine Protein (Negative) Urine Glucose (UA) (Negative) Urine Ketones (Negative) Urine Blood (Negative) Urine Nitrite (Negative) Urine Bilirubin (Negative) Urine Urobilinogen (Negative) Ur Leukocyte Esterase (Negative) 08/01/18 08/01/18 08/02/18 Range/Units 17:28 17:56 03:10 WBC (4.8-10.8) K/uL RBC (4.2-5.4) M/uL Hgb (12.0-16.0) g/dL POC Hgb 12.6 (12.0-16.0) g/dl Hct (37-47) % POC Hct 37 (37-47) % MCV (80-100) fL MCH (25-34) pg MCHC (32-36) g/dL RDW Std Deviation (36.4-46.3) fL RDW Coeff of Margaux (11.5-14.5) % Plt Count (130-400) K/uL MPV (7.4-10.4) fL Immature Gran % (Auto) % Neut % (Auto) % Lymph % (Auto) % [place] % (Auto) % Eos % (Auto) % Baso % (Auto) % Immature Gran # (Auto) (0.00-0.02) K/uL Neut # (Auto) (1.4-6.5) K/uL Lymph # (Auto) (1.2-3.4) K/uL [place] # (Auto) (0.11-0.59) K/uL Eos # (Auto) (0-0.5) K/uL Baso # (Auto) (0-0.2) K/uL PT (9.0-12.0) Seconds INR (0.9-1.1) APTT (21.0-31.0) Seconds PTT Ratio POC Sodium 141 (135-144) mEq/L Sodium 138 (136-145) mmol/L POC Potassium 3.7 (3.3-5.0) mEq/L Potassium 3.7 (3.5-5.1) mmol/L POC Chloride 103 (101-112) mEq/L Chloride 106 (98-107) mmol/L Carbon Dioxide 28 (21-32) mmol/L POC Total CO2 24 (24-31) mEq/l Anion Gap 4.0 (3-11) POC Anion Gap 19.0 (16-25) mmol/L POC BUN 18 (7-18) mg/dl BUN 18 (7-18) mg/dl Creatinine 0.99 (0.6-1.2) mg/dl POC Creatinine 1.0 (0.6-1.3) mg/dl Est Cr Clr Drug Dosing 38.6 ml/min Est GFR ( Amer) 61.9 Est GFR (Non-Af Amer) 53.4 BUN/Creatinine Ratio 18.4 (10-20) Glucose 103 H (70-99) mg/dl POC Glucose (70-99) POC Glucose (other) 106 H (70-99) mg/dl Calcium 9.0 (8.5-10.1) mg/dl POC Ioniz Calcium Irene 1.16 (1.12-1.32) mmol/l Phosphorus 3.2 (2.5-4.9) mg/dl Magnesium 2.2 (1.8-2.4) mg/dl Troponin I < 0.015 (0-0.045) ng/ml TSH 2.660 (0.300-4.500) uIu/ml Urine Color Yellow Urine Appearance Clear (Clear) Urine pH 6.0 (4.5-7.5) Ur Specific [place] 1.041 H (1.000-1.030) Urine Protein Negative (Negative) Urine Glucose (UA) Negative (Negative) Urine Ketones 1+ H (Negative) Urine Blood Negative (Negative) Urine Nitrite Negative (Negative) Urine Bilirubin Negative (Negative) Urine Urobilinogen Negative (Negative) Ur Leukocyte Esterase Negative (Negative) Imaging Data Radiologist's Impression: Radiology results as stated below per my review and the radiologist's interpretation: CT angio head w con HISTORY: Stroke right facial droop TECHNIQUE: Multiaxial CT angiography of the head was performed IV contrast : None. Maximum intensity projection images were also obtained. A dose lowering technique was utilized adhering to the principles of ALARA. COMPARISON: None. Findings: Findings consistent with mild scattered atherosclerotic narrowing of the mid to distal aspects of all major vessels. High degree of stenosis is not felt to be present. There is considerable plaque formation of the internal carotid arteries at the cavernous sinus but narrowing does not exceed 50%. The vertebral basilar system is considered patent. The right vertebral artery is dominant presumably on a congenital basis. There is moderate atherosclerotic narrowing of the distal aspect of the basilar. Posterior cerebral vasculature is relatively small in terms of caliber. IMPRESSION: 1. Diffuse global atherosclerotic change and moderate multifocal narrowing of the intracranial vasculature. 2. This includes anterior middle and posterior cerebral circulation as well as basilar. 3. No evidence for aneurysm. 4. No evidence for a high-grade or critical stenosis. The above report was generated using voice recognition software. It may contain grammatical, syntax or spelling errors. Electronically signed by: Wade Quesada M.D. 08/01/2018 6:[address] angio neck with con HISTORY: Mental status change. Stroke. right facial droop TECHNIQUE: Multiaxial CT angiography of the neck was performed IV contrast : 50 cc All measurements were calculated based on NASCET criteria. Maximum intensity projection images were also obtained. A dose lowering technique was utilized adhering to the principles of ALARA. COMPARISON STUDY: None. FINDINGS: The aortic arch and proximal great vessels are widely patent. The carotid systems show no major stenotic process within the soft tissue neck region. Minimal scattered plaque formation is present. The vertebral basilar system is remarkable for what appears to be a focal dissection of the left vertebral vessel on image 177. Reconstructed images in the sagittal and coronal planes, however suggest this relates to vessel tortuosity rather than dissection. There is no significant stenotic process of the bulk of the vertebral basilar system. There is moderate atherosclerotic narrowing of the distal basilar artery IMPRESSION: No significant stenosis, occlusion, or dissection identified within the carotid or vertebral arteries. Mild atherosclerotic change of the distal basilar artery estimated at 50% narrowing. No evidence for a high-grade stenotic process. The above report was generated using voice recognition software. It may contain grammatical, syntax or spelling errors. Electronically signed by: Wade Quesada M.D. 08/01/2018 6:[address] head/brain wo con CT DOSE: HISTORY: Mental status change Stroke evaluation TECHNIQUE: Multiaxial CT images of the head were performed without the use of intravenous contrast. A dose lowering technique was utilized adhering to the principles of ALARA. Comparison: None. Findings: The paranasal sinuses and mastoid air cells are clear. Findings consistent with a subacute infarct of the left head of the caudate nucleus. Additional areas of chronic small vessel change are noted throughout both cerebral hemispheres. No evidence for acute intracranial hemorrhage. Ventricular system is midline. Impression: 1. Subacute infarct head of the caudate nucleus and left paraventricular region. 2. Age-related chronic small vessel change throughout both cerebral hemispheres. 3. No evidence for acute intracranial hemorrhage. The above report was generated using voice recognition software. It may contain grammatical, syntax or spelling errors. Electronically signed by: Wade Quesada M.D. 08/01/2018 6:46 PM ECG Data Attestation: I personally reviewed and interpreted this ECG as follows: Indication: other (Stroke symptoms) Rate (beats per minute): 95 Rhythm: normal sinus Findings: + other (normal axis); no acute ischemic change Blood Pressure Blood Pressure Findings: Elevated blood pressure Blood Pressure Disposition: further management by hospitalist PAULO Franks The patient is a pleasant 83-year-old woman with a past medical history of CAD and h/o cardiac bypass on daily asa, remote breast cancer, hypertension who presents to emergency department with right facial droop which began yesterday afternoon per hpi. Of note, patient reports forgetting to take her daily Aspirin for past 2 days. On arrival the patient is fatigued appearing but no acute distress, afebrile stable vital signs. On exam the patient has right lower facial paresis. Otherwise, no additional focal findings. 5/5 strength and SILT x 4 extremities. Cerebellar function intact including [id number], alternating palms, [id number]. Given that the patient's symptoms had been ongoing for greater than 24 hours, no criteria for stroke alert at this time. EKG without evidence of acute ischemia. Chest x-ray negative. CT of the head and neck demonstrates subacute infarct head of the caudate nucleus and left paraventricular region in addition to diffuse global atherosclerotic change and moderate multifocal narrowing of the intracranial vasculature. WBC within normal limits. Hemoglobin 11.9. Chemistry without evidence of acidosis. Troponin negative. Case was discussed with [facility] admitting resident, Dr. Arboleda, and [facility] hospitalist, Dr. Johnson, who will evaluate the patient for admission. Impression & Plan Stroke Discharge Plan Visit Data *Final* Discharge Date/Time: 08/01/18 20:41 Chief Complaint: Stroke/CVA Symptoms Stated Complaint: POSSIBLE STROKE ED Provider: Librado Machado Discharge Problem: Stroke Patient Disposition: Admitted As Inpatient Discharge Instructions Interventions: ED Discharge Assessment Last Done: 08/01/18 20:41 The scribe's documentation has been prepared under my direction and personally reviewed by me in its entirety. I confirm that the note above accurately reflects all work, treatment, procedures, and medical decision making performed by me.
[2018-08-02 03:16] LABS: Appearance Urine Clear (Clear); Bilirubin Urine Negative (Negative); Color Urine Yellow; Glucose Urine UA Negative (Negative); Ketones Urine 1+ (Negative); Leukocyte Esterase Urine Negative (Negative); Nitrite Urine Negative (Negative); Protein Urine Negative (Negative); Specific Gravity Urine 1.041 (1.000-1.030); Urobilinogen Urine Negative (Negative)
[2018-08-02 06:04] LABS: Basophils # (auto) 0.01 K/uL (0-0.2); Basophils % (auto) 0.2 %; Hematocrit (blood only) 37.1 % (37-47); Hemoglobin 12.1 g/dL (12.0-16.0); Immature Granulocytes # (auto) 0.01 K/uL (0.00-0.02); Immature Granulocytes % (auto) 0.2 %; Lymphocytes # (auto) 0.73 K/uL (1.2-3.4); Lymphocytes % (auto) 14.5 %; Mean Corpuscular Hgb Conc 32.6 g/dL (32-36); Mean Corpuscular Volume 85.1 fL (80-100); Mean Platelet Volume 10.7 fL (7.4-10.4); Neutrophils % (auto) 83.1 %; Platelet Count 185 K/uL (130-400); RDW Coefficient of Variation 14.2 % (11.5-14.5); RDW Standard Deviation 43.7 fL (36.4-46.3); Red Blood Count 4.36 M/uL (4.2-5.4); White Blood Count 5.05 K/uL (4.8-10.8)
[2018-08-02 06:34] LABS: Albumin Level 3.3 gm/dl (3.4-5.0); BUN Creatinine Ratio 22.3 (10-20); Bilirubin Direct 0.2 mg/dl (0-0.2); Calcium 8.7 mg/dl (8.5-10.1); Creatinine Clr Calc Pharmacy 45.5 ml/min; Est GFR (African American) 75.5; Est GFR (Non-African American) 65.2; Potassium 3.7 mmol/L (3.5-5.1)
[2018-08-02 06:36] LABS: Bilirubin,Total 0.9 mg/dl (0.2-1); Total Protein 7.5 gm/dl (6.4-8.2)
[2018-08-02] MEDS ORDERED: ASPIRIN PO SCH (09:00)
[2018-08-02] MEDS ORDERED: METOPROLOL SUCC 50MG EXT REL TAB PO SCH (09:00)
[2018-08-02] MEDS ORDERED: ASPIRIN 81 MG ECTAB PO SCH (09:00)
[2018-08-02] MEDS ORDERED: WATER PO SCH (09:00)
[2018-08-02] MEDS ORDERED: [UNRECOGNIZED DRUG - OTHER] PO SCH (09:00)
[2018-08-02] MEDS ORDERED: AMLODIPINE BESYLATE 5 MG TAB PO SCH (09:00)
--- NOTE | 2018-08-02 10:01 | Neurology Consultation ---
Date of Consultation August 02, 2018 Assessment & Plan (1) Stroke: Subacute infarct affecting the left caudate and periventricular region. Clinically, this patient has a mild right hemiparesis, mild expressive aphasia, and a right visual field cut. She was notably hypertensive at the time of presentation. Her blood pressure is currently improved. Agree with MRI of the brain as ordered. I would recommend only a single antiplatelet agent for this patient for stroke risk reduction going forward. Would discontinue daily aspirin and continue with Plavix 75 mg/day. I would also recommend obtaining a transthoracic echocardiogram with bubble study. PT/OT/speech consultations. Avoid aggressive lowering of patient's blood pressure. Current blood pressure is appropriate for the time being. History of Present Illness Reason for Consultation: Stroke Requesting Physician: Raul Arboleda MD Attending Physician: Naveed Johnson MD History of Present Illness The patient is an 83-year-old female who complains of right-sided weakness and numbness that began acutely yesterday afternoon. She complains of some associated difficulty with speech and dizziness as well. Her symptoms have been persistent. Past medical history notable for hypertension and hyperlipidemia. She has missed a few doses of her daily aspirin recently. She denies any headache, neck pain, fever, chills, or myalgias. A CT of the head completed in the emergency department revealed a subacute infarct involving the left caudate and periventricular region. No evidence of hemorrhage. I reviewed the images as well as the radiologist interpretation of this test. Electrocardiogram revealed a normal sinus rhythm, 95 bpm. Blood pressure was 214/115. A serum glucose was 103. The patient has been clinically stable since her admission although she continues to exhibit some right sided weakness and also has been noted to have some difficulty with the right visual field. She was working with physical therapy at the time of my assessment of her this morning. Allergies Allergy/AdvReac Type Severity Reaction Status Date / Time Iodinated Contrast- Oral and Allergy Hives Unverified 08/01/18 18:08 IV Dye Home Medications Home Medications Medication Instructions Recorded Confirmed Type amlodipine [Norvasc] 5 mg PO QAM 08/01/18 08/01/18 History metoprolol succinate 50 mg PO BID 08/01/18 08/01/18 History omeprazole 20 mg PO QAM 08/01/18 08/01/18 History pravastatin [Pravachol] 40 mg PO QAM 08/01/18 08/01/18 History Patient History Medical History Breast cancer (Resolved) Hypertension (Chronic) GERD (gastroesophageal reflux disease) Hyperlipidemia Uterine cancer Surgical History H/O heart bypass surgery Cataract History of left mastectomy Social History marital status: Current Living Situation: Spouse current occupational status: retired Other Information That Helps Us Care for You: No Feels Safe at Home: Yes Safety Concerns: Feels Safe At This Time Smoking Status: Never smoker Do You Dip or Chew Tobacco: No Second Hand Exposure: No Tobacco Cessation Education Requested by Patient: No Hx Alcohol Use: No Hx Substance Use: No Beliefs That Will Affect Care: None Communication Ability: Effective Review of Systems Constitutional: no fever and no chills Eyes: as per Subjective / HPI; no diplopia Ear, Nose, Mouth, Throat: no ear pain and no dysphagia Respiratory: + cough Cardiovascular: no chest pain and no palpitations Gastrointestinal: no abdominal pain and no vomiting Genitourinary (Female): no dysuria Musculoskeletal: no myalgia Integumentary: no rash and no lesions Neurologic: as per Subjective / HPI Psychiatric: no depression and no anxiety Hematologic / Lymphatic: no easy bleeding and no lymphadenopathy Physical Exam 2 Vital Signs (Past 24 Hours): Last Vital Signs Temp 36.3 C L 08/02/18 07:56 Pulse 78 08/02/18 07:56 Resp 20 08/02/18 07:56 BP 151/82 H 08/02/18 07:56 Pulse Ox 96 08/02/18 07:56 Physical Exam: The patient is a well-developed, well-nourished elderly female. She is alert and fully oriented. Recent and remote memory intact. Attention and concentration normal. Naming and repetition intact although patient does exhibit mild hesitancy with expressive speech. Fund of knowledge and vocabulary normal. There is a right visual field deficit with confrontation testing. Visual acuity normal. Pupils equal round reactive to light and accommodation. Eye movements normal. Facial sensation intact. There is flattening of the right nasolabial fold. Hearing intact. Palate elevates to midline. Shoulder shrug strength intact. Tongue protrudes to midline. Sensation intact all modalities in all 4 limbs. Deep tendon reflexes are slightly increased for the right arm and leg as compared to the left. The right plantar response is upgoing. Left plantar response downgoing. There is mild dysmetria with finger to nose and heel to helm on the right. No dysmetria with figure to nose or heel to helm on the left. Ophthalmoscopic examination reveals normal-appearing optic disks and posterior segments. No papilledema or hemorrhages. Carotid pulses normal bilaterally, no bruits to auscultation. Patient exhibits a mild hemiparetic gait pattern on the right. Station normal. Muscle strength testing reveals a very mild right hemiparesis affecting the arm and leg. Strength for the left arm and leg normal. Muscle tone normal throughout. No atrophy. No abnormal movements observed. Results & Data Laboratory Results Platelet count 207. Sodium 138. Creatinine 0.99. Glucose 103. A total cholesterol is 172. Diagnostic Findings A CT of the head reveals a subacute infarct within the left caudate and periventricular region. CT angiography of the head reveals diffuse atherosclerotic change while a CT angiogram of the neck reveals a 50% narrowing of the distal basilar artery. An electrocardiogram reveals normal sinus rhythm, 95 bpm. _ (1) Stroke CVA mechanism: unspecified Laterality of affected vessel: Precerebral and cerebral artery: Qualified Code(s): I63.9 - Cerebral infarction, unspecified
[2018-08-02] MEDS ORDERED: LORazepam 0.25 MG/0.5 ML VIAL IV STA (10:02)
--- NOTE | 2018-08-02 10:14 | Family Medicine Progress Note ---
Addendum entered and electronically signed by Presley Rey MD 08/02/18 13:17 : Addendum (Blank) Addendum August 02, 2018 13:15 HTN - patient takes 50mg toprol xl bid. I have held this. I will give one time dose of 25mg this evening - he also takes 5mg amlodipine once daily. I have held this. I will give one time dose of 2.5mg tomorrow morning - Goal systolic 140-160 - Reassess BP in the AM to decide further management with regards to restarting meds Original Note: Date of Service August 02, 2018 Assessment & Plan (1) Stroke: 83-year-old female was admitted on 01 August 2018 for stroke symptoms beginning day prior to admission. Was found to have a subacute caudate and left periventricular infarcts associated with R sided facial droop, unsteady gait and R sided visual field defect CVA: Complained of right-sided facial asymmetry and mild aphasia beginning day prior to admit. CT head notes subacute caudate and left periventricular regional infarcts. Normal glucose, negative troponin, normal TSH. - In ED was treated with aspirin 81 mg and Benadryl. - Neurology consult placed. Recommend the following: - Start plavix and stop aspirin. Increase to high dose statin - Order MRI brain and TTE w/ bubble study - Lipid panel wnl, check HgbA1c - PT/OT eval and patient cleared by speech and swallow - Allow for permissive hypertension: will hold morning BP meds, will give 25mg of toprol tonight and restart norvasc tomorrow morning at 2.5mg Hypertension - Will hold morning dose and allow permissive htn in setting of CVA. Systolic 140-160 - Will restart metoprolol tonight at 25mg and restart norvasc in AM at 2.5mg Anemia: - Admit Hb 11.9, MCV 85. Comparison is 12.8 in Feb 2018. Ongoing medical issues: - Hyperlipidemia: At home is on pravastatin. - Changed to Lipitor 40 mg daily. - CAD and palpitaitons: Prior CABG years ago. Normally on aspirin 81 mg, will switch to plavix and stop aspirin - GERD: At home is on omeprazole 20 mg every morning. Continue here. - History of breast and uterine cancer: S/p left mastectomy as well as hysterectomy/BSO. Code status: Full code. Diet: Heart healthy, consistency recommendations per speech DVT prophy: Lovenox and SCDs. PT/OT: Ordered, awaiting recommendation but will likely need outpatient rehab due to unsteady gait Disbo: Admit to telemetry. (2) Cough: (3) Hypertension: (4) Anemia: (5) Hyperlipidemia: (6) CAD (coronary artery disease): (7) GERD (gastroesophageal reflux disease): Supervising Physician Co-Signing Physician Notes Attending Attestation I saw the patient with the resident physician and confirmed freeman portions of the history and physical exam. I agree with the impression and plan as documented. Upon my examination just before noon, the patient is without complaints. She has an obvious facial droop with some slurring of her speech although I would say it is 90% discernible. CT scan and MRI of the brain and CT of the neck are completed; echocardiogram with bubble study pending. She has had a speech therapy consult which recommends moist/minced. Physical therapy consult pending. CVA Aspirin discontinued and Plavix added Continue atorvastatin Disposition likely to inpatient rehabilitation once insurance authorization and bed availability confirmed Hypertension Permissive hypertension; her systolic around 150 is probably right on the Wade for this time Home dose of Toprol 50 mg p.o. twice daily; recommend 25 mg this evening to prevent rebound phenomenon Home dose of Norvasc is 5 mg in a.m.; recommend 2.5 mg tomorrow a.m. Further adjustments of antihypertensive would be based on her subsequent blood pressure readings Hyperlipidemia Continue atorvastatin Subjective Patient was seen today and was resting comfortably in bed. She has no concerns at this point. She was just seen by the physical therapist who said she will likely need rehab for 7-10 days. She said she is anxious about the MRI. She denies any arm/leg weakness, difficulty swallowing, headache, palpitations, chest pain, visual changes, abdominal pain, vomiting, urinary symptons Review of Systems All systems reviewed & are unremarkable except as noted in HPI & below Physical Exam 2 Vital Signs (Past 24 Hours): Last Vital Signs Temp 36.3 C L 08/02/18 07:56 Pulse 78 08/02/18 07:56 Resp 20 08/02/18 07:56 BP 151/82 H 08/02/18 07:56 Pulse Ox 96 08/02/18 07:56 Constitutional: WD/WN, vitals as above well developed; no acute distress Neck: No bruits or JVD Respiratory: normal respiratory effort, lungs clear to auscultation Cardiovascular: RRR, no murmur, no edema Gastrointestinal (Abdomen): normal bowel sounds, soft, nontender, no hepatosplenomegaly Musculoskeletal: no cyanosis or clubbing, extremities motor strength 5/5 Neurologic: Cranial nerve: smell intact, pupils equal and reactive to light bilaterally, decreased visual mccoy on the R side compared to the left, weakness of R sided facial muscles (droop at corner of R mouth), facial sensation intact, uvula centered, strong shoulder shrug, tongue protrudes at midline ULN: upper limb power 5/5, sensation intact LLN: lower limb power 5/5, sensation intact +2 patellar reflexes, R plantar upgoing, L plantar downgoing Psychiatric: A+Ox3, euthymic affect _ (1) Stroke CVA mechanism: unspecified Laterality of affected vessel: Precerebral and cerebral artery: Qualified Code(s): I63.9 - Cerebral infarction, unspecified
[2018-08-02] MEDS: ENOXAPARIN INJ 30 MG/0.3 ML SYR SQ SCH (10:48)
[2018-08-02] MEDS ORDERED: GADOBUTROL 65ML VIAL IV PRN (11:30)
--- NOTE | 2018-08-02 11:47 | Magnetic Resonance Report ---
MRI OF THE BRAIN COMBO CLINICAL HISTORY: Strokelike symptoms. COMPARISON STUDY: CT of the brain dated 08/01/2018. TECHNIQUE: MRI of the brain was performed utilizing various T1 and T2-weighted sequences in the axial , sagittal, and coronal planes. Contrast-enhanced sequences were acquired following the administratio n of 6.5 cc of Gadavist. FINDINGS: Brain parenchyma: There is an approximately 3 cm focus of restricted diffusion centered in the left b ena ganglia and involving the left caudate head, consistent with acute to subacute ischemia. No shannan tional foci of restricted diffusion are identified. There are age-related involutional changes noting advanced confluent subcortical and periventricular microangiopathic disease. Small chronic lacunar i nfarcts are seen within the left cerebellar hemisphere, the right basal ganglia, and the left thalamu s. There is no hemorrhage or mass effect. No enhancing mass lesion is identified on the postcontrast images. No extra-axial fluid collection is seen. The cerebellar tonsils are normal in configuration. Ventricles, sulci, and cisterns: Prominent second or to involutional change. Pituitary and sella: Unremarkable. Intracranial vasculature: Normal flow voids are maintained at the skull base. Orbits: The bony orbits are grossly intact. Orbital contents are normal in appearance, noting bilater al ocular lens implants. Sinuses and mastoids: There is near complete opacification of the left maxillary antrum. Mild mucosal thickening is seen in the right maxillary antrum. Trace fluid is seen in the right sphenoid sinus. T he mastoid air cells are well pneumatized. Calvarium: Unremarkable. Cervical cord: Partially visualized cervical spinal cord is normal in morphology and signal intensity . IMPRESSION: 1. There is an approximately 3 cm focus of acute to subacute ischemia centered in the left basal gang marcus as above. 2. No additional foci of acute ischemia are identified. 3. There is no hemorrhage or enhancing mass identified. Electronically signed by: Ambrocio Hughes M.D. 08/02/2018 11:46 AM
[2018-08-02] MEDS: ATORVASTATIN 40 MG TAB PO SCH (12:04)
[2018-08-02] MEDS: PANTOprazole 40 MG TAB PO SCH (12:04)
[2018-08-02] MEDS ORDERED: METOPROLOL SUCC 25MG EXT REL TAB PO ONE (21:00)
[2018-08-02] MEDS ORDERED: CLOPIDOGREL BISULFATE 75 MG TAB PO SCH (21:00)
[2018-08-03 06:42] LABS: Estimated Average Glucose 131 mg/dl
[2018-08-03] MEDS: ENOXAPARIN INJ 30 MG/0.3 ML SYR SQ SCH (08:09)
[2018-08-03] MEDS: ATORVASTATIN 40 MG TAB PO SCH (08:09)
[2018-08-03] MEDS: PANTOprazole 40 MG TAB PO SCH (08:09)
--- NOTE | 2018-08-03 08:11 | Neurology Progress Note ---
Date of Service August 03, 2018 Assessment & Plan (1) Stroke: Patient has had a small to medium size left basal ganglia ischemic stroke , likely secondary to hypertensive vascular ischemia. Clinically she is improved compared to yesterday and is left with some very mild dysarthria, clumsiness of the right upper extremity and a dense right facial droop. She has no visual field deficits or encephalopathy. Patient was on 81 mg aspirin tablet daily and now is on Plavix 75 mg daily. Her blood pressure still is slightly elevated Recommendations: 1. Control blood pressure with a mean arterial pressure of approximately 100, for now 2. Patient is a high-dose statin candidate based on her parameters. 3. Physical, occupational, and speech therapy. Patient may be a rehabilitation hospital candidate and this should be explored. Social service consultation is recommend 4. Continue with 75 mg clopidogrel daily for now. She does not need to be on aspirin. Overall, I spent a total of 35 minutes with this case including records review, direct evaluation the patient at bedside, review of MRI films, and discussion of the case with the patient, her daughter was at bedside, and Dr. Kern including differential diagnosis and treatment options. Subjective Patient has no complaint of pain or headache. She feels somewhat improved. The daughter, who is present at bedside, believes that she is less clumsy on the right and her speech is improved. The patient denies confusion, vision issues, or incontinence of urine. She does not believe there is any numbness or tingling the limbs and she feels that her leg is normal. Echocardiogram was unremarkable with no shunt CT angiography of the head and neck were unremarkable although there is some diffuse atherosclerosis intracerebrally. MRI of the brain showed a 3 cm long by 1/2 cm left basal ganglia stroke particularly at head of the caudate. There is no evidence of hemorrhage. Otherwise, there was moderate to severe diffuse old small vessel ischemic changes and mild to moderate atrophy. Laboratory studies revealed unremarkable CBC and Chem profile except for glucose 155. Fasting lipid profile reveals a cholesterol of 172, triglyceride 50 , LDL of 90. Blood pressure remains mildly elevated at 150 9/81. She has been in normal sinus rhythm in the 80s. Physical Exam 2 Vital Signs (Past 24 Hours): Last Vital Signs Temp 36.4 C L 08/03/18 02:55 Pulse 70 08/03/18 02:55 Resp 16 08/03/18 02:55 BP 159/81 H 08/03/18 02:55 Pulse Ox 97 08/03/18 02:55 Physical Exam: She is awake and alert. Speech is without aphasia . She has some mild dysarthria only. Mood is normal and affect is appropriate. Thought processes are intact with good memory. There is no confusion/encephalopathy. Extraocular eye muscles are intact without nystagmus. Pupils are 4 mm bilaterally reactive to light. There is a dense right facial droop with no movement on voluntary command. The left side moves well. For it is normal bilaterally. There is normal sensation of the face bilaterally. Tongue is midline. Neck is supple. With outstretched arms there is no obvious drift but there is clumsiness of the right hand compared to the left. There is slight weakness in right upper extremity distally but fairly strong proximally. The right leg and the left arm and leg are 5/5 diffusely. There is good tone in the limbs. Reflexes are 2/4 throughout all 4 limbs. Toes are downgoing to plantar stimulation on the left and neutral on the right. Gait is narrow based and somewhat tenuous/cautious particularly with turns. Results & Data Diagnostic Findings MRI OF THE BRAIN COMBO CLINICAL HISTORY: Strokelike symptoms. COMPARISON STUDY: CT of the brain dated 08/01/2018. TECHNIQUE: MRI of the brain was performed utilizing various T1 and T2-weighted sequences in the axial, sagittal, and coronal planes. Contrast-enhanced sequences were acquired following the administration of 6.5 cc of Gadavist. FINDINGS: Brain parenchyma: There is an approximately 3 cm focus of restricted diffusion centered in the left basal ganglia and involving the left caudate head, consistent with acute to subacute ischemia. No additional foci of restricted diffusion are identified. There are age-related involutional changes noting advanced confluent subcortical and periventricular microangiopathic disease. Small chronic lacunar infarcts are seen within the left cerebellar hemisphere, the right basal ganglia, and the left thalamus. There is no hemorrhage or mass effect. No enhancing mass lesion is identified on the postcontrast images. No extra-axial fluid collection is seen. The cerebellar tonsils are normal in configuration. Ventricles, sulci, and cisterns: Prominent second or to involutional change. Pituitary and sella: Unremarkable. Intracranial vasculature: Normal flow voids are maintained at the skull base. Orbits: The bony orbits are grossly intact. Orbital contents are normal in appearance, noting bilateral ocular lens implants. Sinuses and mastoids: There is near complete opacification of the left maxillary antrum. Mild mucosal thickening is seen in the right maxillary antrum. Trace fluid is seen in the right sphenoid sinus. The mastoid air cells are well pneumatized. Calvarium: Unremarkable. Cervical cord: Partially visualized cervical spinal cord is normal in morphology and signal intensity. IMPRESSION: 1. There is an approximately 3 cm focus of acute to subacute ischemia centered in the left basal ganglia as above. 2. No additional foci of acute ischemia are identified. 3. There is no hemorrhage or enhancing mass identified. Electronically signed by: Ambrocio Hughes M.D. 08/02/2018 11:46 AM _ (1) Stroke CVA mechanism: unspecified Laterality of affected vessel: Precerebral and cerebral artery: Qualified Code(s): I63.9 - Cerebral infarction, unspecified
[2018-08-03] MEDS ORDERED: AMLODIPINE BESYLATE 5 MG TAB PO ONE (09:00)
[2018-08-03] MEDS ORDERED: STROKE PATIENT DISCHARGE STA (17:26)
--- NOTE | 2018-08-03 18:12 | Discharge Summary ---
Date of Service August 03, 2018 Admission HPI Per Admitting Provider 83-year-old female says that roughly around waking on Friday 04Jan a.m. she noticed some right-sided facial droop as well as difficulty speaking. No known history of the same. She says both seem to have progressively improved until present. She says over the past 48 hours she thought she had "the flu" consisting of feeling tired all over as well as a cough occasionally productive of greenish mucus. She denies any known fevers, chest pain, shortness of breath , or sick contacts. However, because she was not feeling very well, she says she did not take any of her home meds to include her aspirin, amlodipine, or metoprolol. She also notes she is quite stressed because her terminally ill just returned home from [facility]. No other acute patient concerns. Past medical history includes hypertension, breast and uterine cancer, CAD. Past surgical history includes left mastectomy, hysterectomy and BSO, CABG, cataract surgery. Social history includes never smoking. Denies alcohol use. Lives at home with . Is under great stress due to her 's terminal illness. Principal Diagnosis stroke - most likely hypertensive related Discharge Exam She is awake alert oriented x3, pleasant no acute distress. She has a right facial droop and a slight degree of slurred speech, her tongue appears midline. She is not narrowing much of any meaningful right-sided arm or leg weakness. Breathing is unlabored no accessory muscle use good effort Discharge Data Allergies Allergy/AdvReac Type Severity Reaction Status Date / Time Iodinated Contrast- Oral and Allergy Hives Unverified 08/01/18 18:08 IV Dye Consultations Consult Neurology Routine : (1) Stroke: Patient has had a small to medium size left basal ganglia ischemic stroke , likely secondary to hypertensive vascular ischemia. Clinically she is improved compared to yesterday and is left with some very mild dysarthria, clumsiness of the right upper extremity and a dense right facial droop. She has no visual field deficits or encephalopathy. Patient was on 81 mg aspirin tablet daily and now is on Plavix 75 mg daily. Her blood pressure still is slightly elevated Recommendations: 1. Control blood pressure with a mean arterial pressure of approximately 100, for now 2. Patient is a high-dose statin candidate based on her parameters. 3. Physical, occupational, and speech therapy. Patient may be a rehabilitation hospital candidate and this should be explored. Social service consultation is recommend 4. Continue with 75 mg clopidogrel daily for now. She does not need to be on aspirin. Ordered Studies echo EF 60-65%, diastolic dysfunction brain MRI: IMPRESSION: 1. There is an approximately 3 cm focus of acute to subacute ischemia centered in the left basal ganglia as above. 2. No additional foci of acute ischemia are identified. 3. There is no hemorrhage or enhancing mass identified. neck CTA: IMPRESSION: No significant stenosis, occlusion, or dissection identified within the carotid or vertebral arteries. Mild atherosclerotic change of the distal basilar artery estimated at 50% narrowing. No evidence for a high-grade stenotic process. IMPRESSION: 1. Diffuse global atherosclerotic change and moderate multifocal narrowing of the intracranial vasculature. 2. This includes anterior middle and posterior cerebral circulation as well as basilar. 3. No evidence for aneurysm. 4. No evidence for a high-grade or critical stenosis. Lab Results 08/01/18 08/01/18 08/01/18 Range/Units 17:28 17:28 17:28 WBC 6.84 (4.8-10.8) K/uL RBC 4.33 (4.2-5.4) M/uL Hgb 11.9 L (12.0-16.0) g/dL POC Hgb (12.0-16.0) g/dl Hct 37.1 (37-47) % POC Hct (37-47) % MCV 85.7 (80-100) fL MCH 27.5 (25-34) pg MCHC 32.1 (32-36) g/dL RDW Std Deviation 44.3 (36.4-46.3) fL RDW Coeff of Margaux 14.3 (11.5-14.5) % Plt Count 207 (130-400) K/uL MPV 11.0 H (7.4-10.4) fL Immature Gran % (Auto) 0.1 % Neut % (Auto) 57.0 % Lymph % (Auto) 22.8 % [place] % (Auto) 17.0 % Eos % (Auto) 2.8 % Baso % (Auto) 0.3 % Immature Gran # (Auto) 0.01 (0.00-0.02) K/uL Neut # (Auto) 3.90 (1.4-6.5) K/uL Lymph # (Auto) 1.56 (1.2-3.4) K/uL [place] # (Auto) 1.16 H (0.11-0.59) K/uL Eos # (Auto) 0.19 (0-0.5) K/uL Baso # (Auto) 0.02 (0-0.2) K/uL PT 10.6 (9.0-12.0) Seconds INR 1.1 (0.9-1.1) APTT 26.7 (21.0-31.0) Seconds PTT Ratio 1.0 POC Sodium (135-144) mEq/L Sodium (136-145) mmol/L POC Potassium (3.3-5.0) mEq/L Potassium (3.5-5.1) mmol/L POC Chloride (101-112) mEq/L Chloride (98-107) mmol/L Carbon Dioxide (21-32) mmol/L POC Total CO2 (24-31) mEq/l Anion Gap (3-11) POC Anion Gap (16-25) mmol/L POC BUN (7-18) mg/dl BUN (7-18) mg/dl Creatinine (0.6-1.2) mg/dl POC Creatinine (0.6-1.3) mg/dl Est Cr Clr Drug Dosing ml/min Est GFR ( Amer) Est GFR (Non-Af Amer) BUN/Creatinine Ratio (10-20) Glucose (70-99) mg/dl POC Glucose 107 H (70-99) POC Glucose (other) (70-99) mg/dl Estimat Average Glucose mg/dl Hemoglobin A1c (4.5-5.6) % Calcium (8.5-10.1) mg/dl POC Ioniz Calcium Irene (1.12-1.32) mmol/l Phosphorus (2.5-4.9) mg/dl Magnesium (1.8-2.4) mg/dl Total Bilirubin (0.2-1) mg/dl Direct Bilirubin (0-0.2) mg/dl AST (15-37) U/L ALT (12-78) U/L Alkaline Phosphatase (45-117) U/L Troponin I (0-0.045) ng/ml Total Protein (6.4-8.2) gm/dl Albumin (3.4-5.0) gm/dl Triglycerides (0-150) mg/dl Cholesterol (0-200) mg/dl LDL Cholesterol, Calc mg/dl VLDL Cholesterol, Calc mg/dl HDL Cholesterol mg/dl Cholesterol/HDL Ratio TSH (0.300-4.500) uIu/ml Urine Color Urine Appearance (Clear) Urine pH (4.5-7.5) Ur Specific [place] (1.000-1.030) Urine Protein (Negative) Urine Glucose (UA) (Negative) Urine Ketones (Negative) Urine Blood (Negative) Urine Nitrite (Negative) Urine Bilirubin (Negative) Urine Urobilinogen (Negative) Ur Leukocyte Esterase (Negative) 08/01/18 08/01/18 08/01/18 Range/Units 17:28 17:28 17:56 WBC (4.8-10.8) K/uL RBC (4.2-5.4) M/uL Hgb (12.0-16.0) g/dL POC Hgb 12.6 (12.0-16.0) g/dl Hct (37-47) % POC Hct 37 (37-47) % MCV (80-100) fL MCH (25-34) pg MCHC (32-36) g/dL RDW Std Deviation (36.4-46.3) fL RDW Coeff of Margaux (11.5-14.5) % Plt Count (130-400) K/uL MPV (7.4-10.4) fL Immature Gran % (Auto) % Neut % (Auto) % Lymph % (Auto) % [place] % (Auto) % Eos % (Auto) % Baso % (Auto) % Immature Gran # (Auto) (0.00-0.02) K/uL Neut # (Auto) (1.4-6.5) K/uL Lymph # (Auto) (1.2-3.4) K/uL [place] # (Auto) (0.11-0.59) K/uL Eos # (Auto) (0-0.5) K/uL Baso # (Auto) (0-0.2) K/uL PT (9.0-12.0) Seconds INR (0.9-1.1) APTT (21.0-31.0) Seconds PTT Ratio POC Sodium 141 (135-144) mEq/L Sodium 138 (136-145) mmol/L POC Potassium 3.7 (3.3-5.0) mEq/L Potassium 3.7 (3.5-5.1) mmol/L POC Chloride 103 (101-112) mEq/L Chloride 106 (98-107) mmol/L Carbon Dioxide 28 (21-32) mmol/L POC Total CO2 24 (24-31) mEq/l Anion Gap 4.0 (3-11) POC Anion Gap 19.0 (16-25) mmol/L POC BUN 18 (7-18) mg/dl BUN 18 (7-18) mg/dl Creatinine 0.99 (0.6-1.2) mg/dl POC Creatinine 1.0 (0.6-1.3) mg/dl Est Cr Clr Drug Dosing 38.6 ml/min Est GFR ( Amer) 61.9 Est GFR (Non-Af Amer) 53.4 BUN/Creatinine Ratio 18.4 (10-20) Glucose 103 H (70-99) mg/dl POC Glucose (70-99) POC Glucose (other) 106 H (70-99) mg/dl Estimat Average Glucose 131 mg/dl Hemoglobin A1c 6.2 H (4.5-5.6) % Calcium 9.0 (8.5-10.1) mg/dl POC Ioniz Calcium Irene 1.16 (1.12-1.32) mmol/l Phosphorus 3.2 (2.5-4.9) mg/dl Magnesium 2.2 (1.8-2.4) mg/dl Total Bilirubin (0.2-1) mg/dl Direct Bilirubin (0-0.2) mg/dl AST (15-37) U/L ALT (12-78) U/L Alkaline Phosphatase (45-117) U/L Troponin I < 0.015 (0-0.045) ng/ml Total Protein (6.4-8.2) gm/dl Albumin (3.4-5.0) gm/dl Triglycerides (0-150) mg/dl Cholesterol (0-200) mg/dl LDL Cholesterol, Calc mg/dl VLDL Cholesterol, Calc mg/dl HDL Cholesterol mg/dl Cholesterol/HDL Ratio TSH 2.660 (0.300-4.500) uIu/ml Urine Color Urine Appearance (Clear) Urine pH (4.5-7.5) Ur Specific [place] (1.000-1.030) Urine Protein (Negative) Urine Glucose (UA) (Negative) Urine Ketones (Negative) Urine Blood (Negative) Urine Nitrite (Negative) Urine Bilirubin (Negative) Urine Urobilinogen (Negative) Ur Leukocyte Esterase (Negative) 08/02/18 08/02/18 08/02/18 Range/Units 03:10 05:28 05:28 WBC 5.05 (4.8-10.8) K/uL RBC 4.36 (4.2-5.4) M/uL Hgb 12.1 (12.0-16.0) g/dL POC Hgb (12.0-16.0) g/dl Hct 37.1 (37-47) % POC Hct (37-47) % MCV 85.1 (80-100) fL MCH 27.8 (25-34) pg MCHC 32.6 (32-36) g/dL RDW Std Deviation 43.7 (36.4-46.3) fL RDW Coeff of Margaux 14.2 (11.5-14.5) % Plt Count 185 (130-400) K/uL MPV 10.7 H (7.4-10.4) fL Immature Gran % (Auto) 0.2 % Neut % (Auto) 83.1 % Lymph % (Auto) 14.5 % [place] % (Auto) 2.0 % Eos % (Auto) 0.0 % Baso % (Auto) 0.2 % Immature Gran # (Auto) 0.01 (0.00-0.02) K/uL Neut # (Auto) 4.20 (1.4-6.5) K/uL Lymph # (Auto) 0.73 L (1.2-3.4) K/uL [place] # (Auto) 0.10 L (0.11-0.59) K/uL Eos # (Auto) 0.00 (0-0.5) K/uL Baso # (Auto) 0.01 (0-0.2) K/uL PT (9.0-12.0) Seconds INR (0.9-1.1) APTT (21.0-31.0) Seconds PTT Ratio POC Sodium (135-144) mEq/L Sodium 139 (136-145) mmol/L POC Potassium (3.3-5.0) mEq/L Potassium 3.7 (3.5-5.1) mmol/L POC Chloride (101-112) mEq/L Chloride 107 (98-107) mmol/L Carbon Dioxide 23 (21-32) mmol/L POC Total CO2 (24-31) mEq/l Anion Gap 9.0 (3-11) POC Anion Gap (16-25) mmol/L POC BUN (7-18) mg/dl BUN 19 H (7-18) mg/dl Creatinine 0.84 (0.6-1.2) mg/dl POC Creatinine (0.6-1.3) mg/dl Est Cr Clr Drug Dosing 45.5 ml/min Est GFR ( Amer) 75.5 Est GFR (Non-Af Amer) 65.2 BUN/Creatinine Ratio 22.3 H (10-20) Glucose 155 H (70-99) mg/dl POC Glucose (70-99) POC Glucose (other) (70-99) mg/dl Estimat Average Glucose mg/dl Hemoglobin A1c (4.5-5.6) % Calcium 8.7 (8.5-10.1) mg/dl POC Ioniz Calcium Irene (1.12-1.32) mmol/l Phosphorus (2.5-4.9) mg/dl Magnesium (1.8-2.4) mg/dl Total Bilirubin 0.9 (0.2-1) mg/dl Direct Bilirubin 0.2 (0-0.2) mg/dl AST 22 (15-37) U/L ALT 28 (12-78) U/L Alkaline Phosphatase 87 (45-117) U/L Troponin I (0-0.045) ng/ml Total Protein 7.5 (6.4-8.2) gm/dl Albumin 3.3 L (3.4-5.0) gm/dl Triglycerides 50 (0-150) mg/dl Cholesterol 172 (0-200) mg/dl LDL Cholesterol, Calc 90 mg/dl VLDL Cholesterol, Calc 10 mg/dl HDL Cholesterol 72 mg/dl Cholesterol/HDL Ratio 2 TSH (0.300-4.500) uIu/ml Urine Color Yellow Urine Appearance Clear (Clear) Urine pH 6.0 (4.5-7.5) Ur Specific [place] 1.041 H (1.000-1.030) Urine Protein Negative (Negative) Urine Glucose (UA) Negative (Negative) Urine Ketones 1+ H (Negative) Urine Blood Negative (Negative) Urine Nitrite Negative (Negative) Urine Bilirubin Negative (Negative) Urine Urobilinogen Negative (Negative) Ur Leukocyte Esterase Negative (Negative) Hospital Course (1) Stroke: 83-year-old female was admitted on 01 August 2018 for stroke symptoms beginning day prior to admission. Was found to have a subacute caudate and left periventricular infarcts associated with R sided facial droop, unsteady gait and R sided visual field defect CVA: Complained of right-sided facial asymmetry and mild aphasia beginning day prior to admit. CT head notes subacute caudate and left periventricular regional infarcts. Normal glucose, negative troponin, normal TSH. - In ED was treated with aspirin 81 mg and Benadryl. - Neurology consult placed. Recommend the following: - Start plavix and stop aspirin. Increase to high dose statin -Diagnostics as above - Lipid panel wnl, A1c 6.2% -Blood pressure control as outlined by neurology -Stable for rehab placement Hypertension -As above, for now discharged on her home meds and follow at rehab Anemia: - Admit Hb 11.9, MCV 85. Comparison is 12.8 in Feb 2018. Ongoing follow-up Ongoing medical issues: - Hyperlipidemia: At home is on pravastatin. - Changed to Lipitor 40 mg daily. - CAD and palpitaitons: Prior CABG years ago. Normally on aspirin 81 mg, will switch to plavix and stop aspirin - GERD: At home is on omeprazole 20 mg every morning. Continue here. - History of breast and uterine cancer: S/p left mastectomy as well as hysterectomy/BSO. Code status: Full code. Diet: Heart healthy, consistency recommendations per speech DVT prophy: Lovenox and SCDs. PT/OT: Ordered, awaiting recommendation but will likely need outpatient rehab due to unsteady gait [facility] (2) Cough: (3) Hypertension: (4) Anemia: (5) Hyperlipidemia: (6) CAD (coronary artery disease): (7) GERD (gastroesophageal reflux disease): Total Time Total Time Spent Total Time Spent (In Minutes): >30 Discharge Plan Discharge Items Patient Disposition: Transfer Inpatient Rehab Fac Reason For Visit: CVA SYMPTOMS Discharge Diagnosis: Stroke Discharge Goals: Improve function and Increase independence Activity: Per 'Additional Instructions' section Lifting: Gradually increase as tolerated Exercise/Sports: Gradually increase as tolerated Non-emergency contact: Primary Care Provider Call non-emergency contact if: your symptoms worsen and your pain is worsening Follow-up/Referrals: Eulogio Sifuentes MD [Primary Care Provider] - 08/10/18 1:00 pm (Please, follow up at Dr. Sifuentes's office with his law office assistant, Astrid Cotter PA-C, on FridayAugust 10 at 1:00 pm. *If you need to change this appointment, call the office at [phone].) Clemencia Joshua PA-C [Physician Risk Lead] - 08/21/18 9:45 am (Please, follow up at [facility] Neurology Office with Clemencia Joshua PA-C on FridayAugust 21 at 10:00 am (arrive 9:45 am). *This office is located at [address] [place] [address] in [place]. If you need to change this appointment, call the office at [phone].) Diet: Heart Healthy Add Provider Instructions: The patient presented to the hospital with stroke like symptoms and was found to have a right sided facial droop. The patient has clinically improved and currently has residual mild dysarthria, clumsiness of the right upper extremity and a dense right facial droop. New Medications: - Atrovastatin 40mg PO QAM - Clopidogrel 75mg PO QPM - Resume previous home antihypertensive medications Discontinue: - Pravastatin 40mg PO QAM (1) Stroke: 83-year-old female was admitted on 01 August 2018 for stroke symptoms beginning day prior to admission. Was found to have a subacute caudate and left periventricular infarcts associated with R sided facial droop, unsteady gait and R sided visual field defect CVA: Complained of right-sided facial asymmetry and mild aphasia beginning day prior to admit. CT head notes subacute caudate and left periventricular regional infarcts. Normal glucose, negative troponin, normal TSH. - In ED was treated with aspirin 81 mg and Benadryl. - Neurology consult placed. Recommend the following: - Start plavix and stop aspirin. Increase to high dose statin - Order MRI brain and TTE w/ bubble study - Lipid panel wnl, check HgbA1c - PT/OT eval and patient cleared by speech and swallow - Restart home antihypertensives on discharge after holding home doses for permissive hypertension during admission Hypertension - Resume home antihypertensives on discharge Anemia: - Admit Hb 11.9, MCV 85. Comparison is 12.8 in Feb 2018. Ongoing medical issues: - Hyperlipidemia: At home is on pravastatin. - Changed to Lipitor 40 mg daily. - CAD and palpitaitons: Prior CABG years ago. Normally on aspirin 81 mg, will switch to plavix and stop aspirin - GERD: At home is on omeprazole 20 mg every morning. Continue here. - History of breast and uterine cancer: S/p left mastectomy as well as hysterectomy/BSO. Code status: Full code. Diet: Heart healthy, consistency recommendations per speech DVT prophy: Lovenox and SCDs. PT/OT: Ordered, awaiting recommendation but will likely need outpatient rehab due to unsteady gait Dispo: Admit to telemetry. (2) Cough: (3) Hypertension: (4) Anemia: (5) Hyperlipidemia: (6) CAD (coronary artery disease): (7) GERD (gastroesophageal reflux disease): Prescriptions: New atorvastatin 40 mg Tablet 40 mg PO QAM 30 Days Qty: 30 RF: 0 clopidogrel 75 mg Tablet 75 mg PO QPM 30 Days Qty: 30 RF: 0 Continue metoprolol succinate 50 mg Tablet Extended Release 24 Hr 50 mg PO BID RF: 0 amlodipine [Norvasc] 5 mg Tablet 5 mg PO QAM RF: 0 omeprazole 20 mg Tablet,Delayed Release (Dr/Ec) 20 mg PO QAM RF: 0 Discontinued pravastatin [Pravachol] 40 mg Tablet 40 mg PO QAM RF: 0 Stand-Alone Forms: My [facility] Discharge Orders: Discharge Order (Routine); Ordered 08/03/18 Ordered By: Roderick Mullins Skilled Items Patient informed of condition?: Yes DNR: No Discharge Level of Care: Acute rehab Communicable Disease: No Discharge Prognosis: Improving Admission Data Admit Date/Time: 08/01/18 20:18 Attending Provider: Azael Kern Admit Provider: Raul Arboleda Primary Care Provider: Eulogio Sifuentes Other Providers: Naveed Johnson ; Todd Montague ; Regan Singer Service: Telemetry Other Interventions: Discharge Summary Assessment (RN) Last Done: 08/03/18 17:29
== END 2018-08-03 17:55 | DRG 65 ==
LOC: ED 16:58 → SUATTDRO 20:18 → 2S 20:18

== ENCOUNTER 2022-11-17 11:50 | Inpatient (IN) ==
[2022-11-17] MEDS ORDERED: CEFEPIME 2,000 MG/20 ML VIAL IV STA (12:56)
--- NOTE | 2022-11-17 13:44 | XRay Report ---
XR chest 1V portable HISTORY: 87 years-old Female Sepsis acute sepsis COMPARISON: 03/13/2020 TECHNIQUE: AP view of the chest FINDINGS: Cardiomegaly with prior median sternotomy. Small pleural effusions. Perivascular congestion with coar sening of interstitium. Mild ill-defined airspace opacities, most pronounced within the left lung bas e. Degenerative changes of the shoulders and spine. Cholecystectomy. IMPRESSION: 1. Cardiomegaly with pulmonary vascular congestion and interstitial coarsening suggestive of pulmonar y edema versus interstitial pneumonitis. 2. Small left pleural effusion with mild left basilar consolidation. ACT 112: Negative or not required by law. The above report was generated using voice recognition software. It may contain grammatical, syntax o r spelling errors. Electronically signed by: Roderick Rucker M.D. 11/17/2022 1:42 PM
[2022-11-17 13:55] LABS: Basophils # (auto) 0.02 K/uL (0-0.2); Basophils % (auto) 0.2 %; Eosinophils # (auto) 0.01 K/uL (0-0.50); Eosinophils % (auto) 0.1 %; Hematocrit (blood only) 33.2 % (37.0-47.0); Hemoglobin 10.9 g/dl (12.0-16.0); Immature Granulocytes # (auto) 0.06 K/uL (0.01-0.20); Immature Granulocytes % (auto) 0.5 %; Lymphocytes # (auto) 1.06 K/uL (1.2-3.4); Lymphocytes % (auto) 8.8 %; Mean Corpuscular Hemoglobin 28.5 pg (25.0-34.0); Mean Corpuscular Hgb Conc 32.8 g/dL (32.0-36.0); Mean Corpuscular Volume 86.7 fL (80.0-100.0); Mean Platelet Volume 10.7 fL (9.4-12.4); Monocytes # (auto) 1.31 K/uL (0.11-0.59); Monocytes % (auto) 10.9 %; Neutrophils # (auto) 9.58 K/uL (1.40-6.50); Neutrophils % (auto) 79.5 %; Platelet Count 233 K/uL (130-400); RDW Coefficient of Variation 13.7 % (11.5-14.5); RDW Standard Deviation 43.1 fL (36.4-46.3); Red Blood Count 3.83 M/uL (4.20-5.40); White Blood Count 12.04 K/ul (4.8-10.8)
[2022-11-17 14:20] LABS: Alanine Aminotransferase 15 U/L (7-52); Albumin Level 3.5 gm/dl (3.4-5.0); Alkaline Phosphatase 86 U/L (34-104); Anion Gap 6 (3-11); Aspartate Aminotransferase 25 U/L (13-39); BUN Creatinine Ratio 18.7 (10-20); Bilirubin,Total 1.2 mg/dl (0.2-1.0); Blood Urea Nitrogen 17 mg/dl (6-23); Calcium 8.9 mg/dl (8.6-10.3); Carbon Dioxide 26 mmol/L (21-32); Chloride 98 mmol/L (98-107); Creatinine Clr Calc Pharmacy 40.7 ml/min; Est GFR (African American) 66.7 ml/min; Est GFR (Non-African American) 57.5 ml/min; Glucose 154 mg/dl (70-99(Fasting)); Magnesium 1.6 mg/dl (1.7-2.4); Sodium 130 mmol/L (136-145); Total Protein 7.3 gm/dl (6.0-8.3); Troponin I High Sensitivity 14.3 pg/ml (0-14)
--- NOTE | 2022-11-17 14:24 | Emergency Department Note ---
Impression & Plan Pneumonia, Hypoxia ED Provider Note INFORMANT: Patient ED PROVIDER(S): Davis Flower DO CHIEF COMPLAINT: Shortness of breath and hypoxia PLAN: Disposition: Admission Outpatient prescription management: none Discussion with: I spoke with the hospitalist, who will see the patient for admission/observation and further evaluation and consultation. MEDICAL DECISION MAKING: This is a 87-year-old female presents to the ED with a chief complaint of cold symptoms for the past week and 1/2 to 2 weeks. She states over the past several days she is gotten worse. She states that she has a productive cough with yellow sputum. The patient reports that she went to an urgent care and they found her to be hypoxic with oxygen saturation around 87%. They sent her here for further evaluation. The patient is hypoxic on room air here as well. 86% saturations. She is requiring couple liters of oxygen to maintain saturations above 90%. Her exam reveals some crackles primarily in the left base on my exam. She is otherwise in no distress. Mildly tachypneic. Heart is regular rate and rhythm. The patient did receive a DuoNeb treatment at the urgent care. Her CBC shows a white blood cell count of 12. No significant anemia. Lactic acid was negative. Chest x-ray shows findings suggestive of bilateral pneumonitis. Spoke with the hospitalist, who will see the patient for further evaluation and care Triage Nursing notes reviewed. Vital Signs: reviewed Prior /Outside records reviewed: none Differential diagnosis: The differential was considered includes acute myocardial infarction, acute coronary syndrome, myocarditis, pericarditis, pericardial effusions /tamponad, esophageal perforation, pulmonary embolism, pneumonia, pneumothorax, cardiomyopathy, congestive heart, anemia , COPD/asthma exacerbation. Diagnostics, as interpreted by me: 12 lead ECG: Normal sinus rhythm rate of 98. No ST elevation. No PVCs. Normal QTc Cardiac Monitoring ordered: Sinus rhythm in the 90s. Medical decision rules: none Imaging studies: Chest x-ray: Bilateral pneumonitis Procedures: none. Critical care: none. HPI: See MDM above. PAST MEDICAL HISTORY: See Below PAST SURGICAL HISTORY: See Below SOCIAL HISTORY: See Below HOME MEDICATIONS: See Below ALLERGIES: See Below VITALS: See Below PHYSICAL EXAMINATION: See MDM for positive findings otherwise unremarkable. CONSTITUTIONAL/VITAL SIGNS: Reviewed GENERAL:done as appropriate INTEGUMENTARY: done as appropriate HEAD: done as appropriate EYES: done as appropriate RESPIRATORY: done as appropriate CARDIOVASCULAR:done as appropriate GI/ABDOMEN:done as appropriate EXTREMITIES: done as appropriate NEUROLOGICAL: done as appropriate PSYCHIATRIC:done as appropriate MUSCULOSKELETAL:done as appropriate TRIAGE NURSING DOCUMENTATION REVIEWED. Past Med/Surg History Medical History Anemia Anxiety Breast cancer CAD (coronary artery disease) Cough GERD (gastroesophageal reflux disease) History of basal cell carcinoma (BCC) Hyperlipidemia Hypertension Insomnia Stroke Uterine cancer Surgical History Cataract H/O heart bypass surgery History of left mastectomy Family History Brother Prostate cancer Mother Myocardial infarction Sister Myocardial infarction Mother Stroke Hypertension Heart problem Denies family history of Ovarian cancer Breast cancer Colorectal cancer Social History Smoking Status: Never smoker Second Hand Exposure: No; Hx Alcohol Use: No Hx Substance Use: No Preferred Language: Moroccan Communication Ability: Effective Visual Impairment: No Limitations Bulk Mail Clerk Required: No Beliefs That Will Affect Care: None marital status: Current Living Situation: Spouse current occupational status: retired Feels Safe at Home: Yes Childhood Exposure to Second-Hand Smoke: Yes Dental Care, Regularly: No Physical Activity Frequency: 5-6 Times per Week Physical Activity Frequency Comment: walk Seatbelt Use: always Sunscreen Use: Yes Assistive Devices: Denture - Upper and Denture - Lower Allergies Allergies Allergy/AdvReac Type Severity Reaction Status Date / Time Iodinated Contrast Media Allergy Hives Verified 03/06/22 11:32 [Iodinated Contrast- Oral and IV Dye] Home Meds Home Medications Medication Instructions Recorded Confirmed multivitamin (Daily Multi-Vitamin 1 tab PO DAILY 02/26/19 03/06/22 tablet) Prevagen PO DAILY 03/06/21 03/06/22 Previous Rx's Medication Instructions Recorded blood sugar diagnostic (Contour #100 ea 05/29/21 Next Test Strips) metoprolol succinate 50 mg 50 mg PO BID #180 tabs 01/11/22 tablet,extended release 24 hr levothyroxine 50 mcg tablet 50 mcg PO DAILY #90 tabs 01/21/22 amlodipine 5 mg tablet See Rx Instructions .Route 10/08/22 .COMPLEX #180 tabs atorvastatin 40 mg tablet (Lipitor) 40 mg PO DAILY #90 tabs 10/08/22 clopidogrel 75 mg tablet 75 mg PO DAILY #90 tabs 10/08/22 pantoprazole 20 mg tablet,delayed 20 mg PO DAILY #90 tabs 10/08/22 release Results & Data (ED) Vital Signs Vital Signs - 24 hr 11/17/22 12:00 11/17/22 12:56 Temperature 37.8 C H Temperature Source Oral Pulse Rate 99 H Respiratory Rate 18 Respiratory Effort / Characteristics Non-Labored Respiratory Depth Normal Respiratory Pattern Regular Blood Pressure 142/68 H Blood Pressure Mean 92 Pulse Oximetry 91 96 Oxygen Delivery Method Room Air Nasal Cannula Oxygen Flow Rate 2 Sepsis Recent Fever Within 48 Hours No Sepsis New/Unexplained Change in Mental Status No Sepsis Action Taken by Nursing No Action Required Laboratory Data 11/17/22 13:29 11/17/22 13:29 Lab Results 11/17/22 11/17/22 11/17/22 Range/Units 13:29 13:29 13:29 WBC 12.04 H (4.8-10.8) K/ul RBC 3.83 L (4.20-5.40) M/uL Hgb 10.9 L (12.0-16.0) g/dl Hct 33.2 L (37.0-47.0) % MCV 86.7 (80.0-100.0) fL MCH 28.5 (25.0-34.0) pg MCHC 32.8 (32.0-36.0) g/dL RDW Std Deviation 43.1 (36.4-46.3) fL RDW Coeff of Margaux 13.7 (11.5-14.5) % Plt Count 233 (130-400) K/uL MPV 10.7 (9.4-12.4) fL Immature Gran % (Auto) 0.5 % Neut % (Auto) 79.5 % Lymph % (Auto) 8.8 % Nolan % (Auto) 10.9 % Eos % (Auto) 0.1 % Baso % (Auto) 0.2 % Neut # (Auto) 9.58 H (1.40-6.50) K/uL Lymph # (Auto) 1.06 L (1.2-3.4) K/uL Nolan # (Auto) 1.31 H (0.11-0.59) K/uL Eos # (Auto) 0.01 (0-0.50) K/uL Baso # (Auto) 0.02 (0-0.2) K/uL Immature Gran # (Auto) 0.06 (0.01-0.20) K/uL Sodium 130 L (136-145) mmol/L Potassium 4.0 (3.5-5.1) mmol/L Chloride 98 (98-107) mmol/L Carbon Dioxide 26 (21-32) mmol/L Anion Gap 6 (3-11) BUN 17 (6-23) mg/dl Creatinine 0.91 (0.6-1.2) mg/dl Est Cr Clr Drug Dosing 40.7 ml/min Est GFR ( Amer) 66.7 ml/min Est GFR (Non-Af Amer) 57.5 ml/min BUN/Creatinine Ratio 18.7 (10-20) Glucose 154 H (70-99(Fasting)) mg/dl Lactate 1.2 (0.4-2.0) mmol/L Calcium 8.9 (8.6-10.3) mg/dl Magnesium 1.6 L (1.7-2.4) mg/dl Total Bilirubin 1.2 H (0.2-1.0) mg/dl Direct Bilirubin TNP AST 25 (13-39) U/L ALT 15 (7-52) U/L Alkaline Phosphatase 86 (34-104) U/L Troponin I High Sens 14.3 H (0-14) pg/ml Total Protein 7.3 (6.0-8.3) gm/dl Albumin 3.5 (3.4-5.0) gm/dl Procalcitonin (0-0.5) ng/ml SARS-CoV-2, RNA, NAAT (NEGATIVE) 11/17/22 11/17/22 Range/Units 13:29 14:05 WBC (4.8-10.8) K/ul RBC (4.20-5.40) M/uL Hgb (12.0-16.0) g/dl Hct (37.0-47.0) % MCV (80.0-100.0) fL MCH (25.0-34.0) pg MCHC (32.0-36.0) g/dL RDW Std Deviation (36.4-46.3) fL RDW Coeff of Margaux (11.5-14.5) % Plt Count (130-400) K/uL MPV (9.4-12.4) fL Immature Gran % (Auto) % Neut % (Auto) % Lymph % (Auto) % Nolan % (Auto) % Eos % (Auto) % Baso % (Auto) % Neut # (Auto) (1.40-6.50) K/uL Lymph # (Auto) (1.2-3.4) K/uL Nolan # (Auto) (0.11-0.59) K/uL Eos # (Auto) (0-0.50) K/uL Baso # (Auto) (0-0.2) K/uL Immature Gran # (Auto) (0.01-0.20) K/uL Sodium (136-145) mmol/L Potassium (3.5-5.1) mmol/L Chloride (98-107) mmol/L Carbon Dioxide (21-32) mmol/L Anion Gap (3-11) BUN (6-23) mg/dl Creatinine (0.6-1.2) mg/dl Est Cr Clr Drug Dosing ml/min Est GFR ( Amer) ml/min Est GFR (Non-Af Amer) ml/min BUN/Creatinine Ratio (10-20) Glucose (70-99(Fasting)) mg/dl Lactate (0.4-2.0) mmol/L Calcium (8.6-10.3) mg/dl Magnesium (1.7-2.4) mg/dl Total Bilirubin (0.2-1.0) mg/dl Direct Bilirubin AST (13-39) U/L ALT (7-52) U/L Alkaline Phosphatase (34-104) U/L Troponin I High Sens (0-14) pg/ml Total Protein (6.0-8.3) gm/dl Albumin (3.4-5.0) gm/dl Procalcitonin 0.17 (0-0.5) ng/ml SARS-CoV-2, RNA, NAAT NEGATIVE (NEGATIVE) Administered Medications Discontinued Medications Cefepime HCl (Maxipime) 2,000 mg in 20 mls @ 5 mls/min IV NOW STA; Protocol Stop: 11/17/22 12:59 Last Admin: 11/17/22 14:31 Dose: 5 mls/min Documented By: [facility] [[email or web address]] Imaging Data Radiologist's Impression: Chest X-Ray 11/17/22 12:56 XR chest 1V portable HISTORY: 87 years-old Female Sepsis acute sepsis COMPARISON: 03/13/2020 TECHNIQUE: AP view of the chest FINDINGS: Cardiomegaly with prior median sternotomy. Small pleural effusions. Perivascular congestion with coarsening of interstitium. Mild ill-defined airspace opacities, most pronounced within the left lung base. Degenerative changes of the shoulders and spine. Cholecystectomy. IMPRESSION: 1. Cardiomegaly with pulmonary vascular congestion and interstitial coarsening suggestive of pulmonary edema versus interstitial pneumonitis. 2. Small left pleural effusion with mild left basilar consolidation. ACT 112: Negative or not required by law. The above report was generated using voice recognition software. It may contain grammatical, syntax or spelling errors. Electronically signed by: Roderick Rucker M.D. 11/17/2022 1:42 PM Discharge Plan Visit Data Chief Complaint: Illness ED Provider: Davis Flower Discharge Problem: Pneumonia, Hypoxia Patient Disposition: Being Evaluated by Hospitalist Forms Stand Alone Forms: [facility] [employer] Prescriptions Prescriptions: No Action (DME) Contour Next Test Strips Strip See Rx Instructions .Route Qty: 100 3RF Rx Instructions: Test once daily levothyroxine 50 mcg tablet 50 mcg PO DAILY Qty: 90 3RF pantoprazole 20 mg tablet,delayed release (DR/EC) 20 mg PO DAILY Qty: 90 3RF clopidogrel 75 mg tablet 75 mg PO DAILY Qty: 90 1RF amlodipine 5 mg tablet See Rx Instructions .ROUTE .COMPLEX Qty: 180 0RF Dose Instruction: TAKE 2 TABLETS BY MOUTH IN THE MORNING Rx Instructions: TAKE 2 TABLETS BY MOUTH IN THE MORNING atorvastatin [Lipitor] 40 mg tablet 40 mg PO DAILY Qty: 90 1RF multivitamin [Daily Multi-Vitamin] tablet 1 tab PO DAILY Prevagen PO DAILY metoprolol succinate 50 mg tablet extended release 24 hr 50 mg PO BID Qty: 180 3RF Referrals Referrals: Eulogio Sifuentes MD [Primary Care Provider] -
--- NOTE | 2022-11-17 14:43 | History & Physical Report ---
Date of Service November 17, 2022 Assessment & Plan (1) Acute respiratory failure with hypoxia: Plan: -Admit to med/tele on pulse oximetry -Currently stable on 2L NC, conitnue to titrate to keep SpO2 at or above 95% -Incentive spirometry, flutter therapy, scheduled DuoNebs, scheduled Robitussin DM -Differential includes viral pneumonia with possible superimposed bacterial PNA, heart failure, PE, ACS -Symptoms have been ongoing for 3 weeks but recently started developing yellow/green sputum production -Mild leukocytosis with left shift, procal negative, covid negative, will get full respiratory biofire for further evaluation -No pleuritic chest pain, hemodynamically stable, no signs of erythema or swelling on the BL LE's, will hold CTPE at this time as she has other causes for hypoxia at this time. -Will obtain BNP and TTE to monitor for CHF, will hold diuretics for now (2) Pneumonia: Plan: -S/P one dose of cefepime in the ED -Will continue with Daily azithromycin for atypical coverage -Unasyn for typical coverage -Blood cultures obtained -Rest of care per respiratory failure plan (3) Hyponatremia: Plan: -Noted to be 130 today -The patient appears systemically dehydrated but does have some fluid on lung exam -Has had poor oral intake over the past 3 weeks, likely the cause -Renal function is stable, no diuretics -Will obtain STAT serum osmolality, urine osmolality, and urine sodium for further evaluation -Will keep on a free water restriction until the rest of her workup is back -Monitor am sodium level (4) Elevated troponin: Plan: -Initially high sen trop minimially elevated at 14.3 -Patient is without chest pain and no acute changes on ECG -Likely due to demand from hypoxia -Will continue to monitor on tele, repeat STAT high sen trop and ECG if she develops chest pain (5) Hypomagnesemia: Plan: -Noted to be 1.6 today -No ECG changes -Likely due to poor oral intake -Will give 2 bags mag sulfate on admission -FU am mag level (6) Abnormal thyroid stimulating hormone level: Plan: -Continue levothyroxine (7) Hyperlipidemia: Plan: -Continue statin (8) CAD (coronary artery disease): Plan: -Continue plavix (9) Hypertension: Plan: -Stable -Continue amlodipine and metoprolol (10) Stroke: Plan: -Continue plavix Plan The patient was discussed with Dr. Alatorre at the time of the admisssion -DVT PPX: BL SCD's and Sub-Q lovenox -Diet: Heart healthy, free water restriction for now due to hyponatremia History of Present Illness Chief Complaint: SOB Primary Care Provider: Eulogio Sifuentes MD Bre is an 87 year old female with a PMH significant for CAD S/P bypass X 3 in 2010, previous CVA on Plavix, HTN, hyperlipidemia, hypothyroidism, and GERD who presented to the [facility] ED via EMS from the [facility] Walk-in clinic today due to ongoing SOB, URI symptoms and hypoxia. In the ED she was found to have a temperature of 37.8 C, hypoxic at 9% on RA, otherwise stable. Labs were significant for a WBC of 12, left shift of 9.58, lymphocyte count of 1.06, sodium of 130, mag of 1.6, initial high sen trop of 14.3, and covid 19 negative. Chest xray shows cardiomegaly with pulmonary vascular with interstitial coarsening with a small left pleural effusion and left basilar consolidation. Prior to admission the patient was given a dose of cefepime. At the time of the exam the patient was lying in bed in no acute distress with her family sitting bedside. She started to develop progressive SOB, a non- productive cough, and congestion approximately 3 weeks ago. Over the past 3 days or so she has noticed yellow/green sputum production along with increased SOB and fatigue. Her family took her to a [facility] acute care clinic this am and while doing an ambulatory pulse oximetry test she fell into the 80's on RA. She does not use O2 or CPAP at home and does not have a history of asthma, COPD, or tobacco use. She denies chest pain, abd pain, nausea, vomiting, diarrhea, dysuria, hematuria, melena, LE swelling and recent trauma. Of note, she states that her appetite has been very poor. She has mainly been drinking ice water. Since receiving a DuoNeb treatment by EMS her breathing feels somewhat improved compared to this am. She took all of her am meds today. We had a long discussion regarding code status with she and her family She wishes to be a conditional code and would only want a trial of intubation if needed. She would not want chest compressions or defibrillation in the event of cardiac arrest. Her children are her POA's. Please refer to Dr. Alatorre's attestation for any changes to the treatment plan Allergies Allergy/AdvReac Type Severity Reaction Status Date / Time Iodinated Contrast Media Allergy Hives Verified 03/06/22 11:32 [Iodinated Contrast- Oral and IV Dye] Home Medications Medication Instructions Recorded Confirmed Type multivitamin (Daily Multi-Vitamin 1 tab PO DAILY 02/26/19 11/17/22 History tablet) blood sugar diagnostic (Contour #100 ea 05/29/21 11/17/22 Rx Next Test Strips) metoprolol succinate 50 mg 50 mg PO BID #180 tabs 01/11/22 11/17/22 Rx tablet,extended release 24 hr amlodipine 5 mg tablet 10 mg PO QAM 11/17/22 11/17/22 History atorvastatin 40 mg tablet (Lipitor) 40 mg PO QAM 11/17/22 11/17/22 History clopidogrel 75 mg tablet 75 mg PO QAM 11/17/22 11/17/22 History levothyroxine 25 mcg tablet 25 mcg PO DAILYBB 11/17/22 11/17/22 History pantoprazole 20 mg tablet,delayed 20 mg PO QAM 11/17/22 11/17/22 History release Past Med/Surg History Medical History Anemia Anxiety Breast cancer CAD (coronary artery disease) Cough GERD (gastroesophageal reflux disease) History of basal cell carcinoma (BCC) Hyperlipidemia Hypertension Insomnia Stroke Uterine cancer Surgical History Cataract H/O heart bypass surgery History of left mastectomy Family History Brother Prostate cancer Mother Myocardial infarction Sister Myocardial infarction Mother Stroke Hypertension Heart problem Denies family history of Ovarian cancer Breast cancer Colorectal cancer Social History Smoking Status: Never smoker Second Hand Exposure: No; Do You Dip or Chew Tobacco: No; Tobacco Cessation Education Requested by Patient: No Hx Alcohol Use: No Hx Substance Use: No Preferred Language: Italian Communication Ability: Effective Visual Impairment: No Limitations Traveling Auditor Required: No Beliefs That Will Affect Care: None marital status: Current Living Situation: Spouse Current Living Situation Comment: sr apartment house current occupational status: retired Other Information That Helps Us Care for You: No Feels Safe at Home: Yes Childhood Exposure to Second-Hand Smoke: Yes Dental Care, Regularly: No Physical Activity Frequency: 5-6 Times per Week Physical Activity Frequency Comment: walk Seatbelt Use: always Sunscreen Use: Yes Assistive Devices: None Physical Exam Physical Exam: Physical Exam: General: In no acute distress, stated age, well-nourished, good hygiene, non- toxic appearing HEENT: Normocephalic, atraumatic, no scleral icterus, NC currently in place pupils around round, symmetrical, and reactive to light, DRY mucus membranes, trachea midline, no thyromegaly Chest/Pulm: No respiratory distress, symmetrical chest expansion, decreased breath sounds in the BL lower lung mccoy with crackles and expiratory wheezing noted in the mid and upper lung mccoy Cardiac: RRR, no murmurs noted Abdomen: Negative for ascites and bruising, normoactive bowel sounds, soft, non-tender to palpation throughout Musculoskeletal: Symmetrical and without signs of acute trauma, upper and lower extremities with full ROM, no atrophy, spasticity, or flaccidity Extremities: Radial, dorsalis pedis, and posterior tibial pulses are intact and symmetrical, no edema noted in the BL LE's Skin: Warm, dry, no rashes , lesions, or scars noted Neuro: Alert and oriented to person, place, month, year, and president, no focal defects, CN II-XII tested and intact, no tremors noted Psych: No acute distress, calm and cooperative during the exam Results & Data Results & Data Vital Signs (Past 12 Hours) Vital Signs Temp Pulse Resp BP Pulse Ox O2 Del Method O2 Flow Rate 11/17/22 12:56 96 Nasal Cannula 2 11/17/22 12:00 37.8 C H 99 H 18 142/68 H 91 Room Air Laboratory Results Abnormal lab results 11/17/22 11/17/22 Range/Units 13:29 13:29 WBC 12.04 H (4.8-10.8) K/ul RBC 3.83 L (4.20-5.40) M/uL Hgb 10.9 L (12.0-16.0) g/dl Hct 33.2 L (37.0-47.0) % Neut # (Auto) 9.58 H (1.40-6.50) K/uL Lymph # (Auto) 1.06 L (1.2-3.4) K/uL [place] # (Auto) 1.31 H (0.11-0.59) K/uL Sodium 130 L (136-145) mmol/L Glucose 154 H (70-99(Fasting)) mg/dl Magnesium 1.6 L (1.7-2.4) mg/dl Total Bilirubin 1.2 H (0.2-1.0) mg/dl Troponin I High Sens 14.3 H (0-14) pg/ml Diagnostic Findings Chest X-Ray 11/17/22 12:56 XR chest 1V portable HISTORY: 87 years-old Female Sepsis acute sepsis COMPARISON: 03/13/2020 TECHNIQUE: AP view of the chest FINDINGS: Cardiomegaly with prior median sternotomy. Small pleural effusions. Perivascular congestion with coarsening of interstitium. Mild ill-defined airspace opacities, most pronounced within the left lung base. Degenerative changes of the shoulders and spine. Cholecystectomy. IMPRESSION: 1. Cardiomegaly with pulmonary vascular congestion and interstitial coarsening suggestive of pulmonary edema versus interstitial pneumonitis. 2. Small left pleural effusion with mild left basilar consolidation. ACT 112: Negative or not required by law. The above report was generated using voice recognition software. It may contain grammatical, syntax or spelling errors. Electronically signed by: Roderick Rucker M.D. 11/17/2022 1:42 PM ECG Additional Comments: Poor data quality, interpretation may be adversely affected Normal sinus rhythm Possible Left atrial enlargement ST & T wave abnormality, consider anterior ischemia Abnormal ECG When compared with ECG of 01-AUG-2018 17:19, T wave inversion more evident in Anterior leads Code Status & VTE Plan Code Status Conditional; No CPR of Defibrillation; would want a trial of intubation if needed VTE Prophylaxis Plan VTE Prophylaxis will be ordered: Yes Supervising Physician Co-Signing Physician Notes I personally saw and examined the patient. I verified all freeman points and agree with Davis Arroyo PA-C with the following exceptions and/or additions: 87 year old female presents to the ER with fever, shortness of breath, chest tightness. Slow progression of shortness of breath over the last week. Much worse over the last 3 days with coughing up green sputum and this is when the fevers started. O2 sats at urgent care in 80s on room air therefore she was sent to the ER for further care. O/E A&Ox3, HS RRR, no murmurs, Chest - exp wheeze, left basal coarse crackles, Abdo SNT, no LE edema, no JVD A/P PNA - Unasyn + azithromycin Possible pulmonary edema - will discuss start Lasix tomorrow with oncoming provider depending on repeat labs and wheezing on exam, TTE Wheezing - no history of reactive airway disease, suspect duoneb is really just helping her cough up mucus rather than true reactive airway disease, more likely due to pulmonary edema Hyponatremia - mild, just monitor in AM, ?dietary vs. hypervolemia PG Care Time/CCT Total # of Minutes Spent Total Time Spent with Patient: Total time spent is greater than 50% in coordination of care (as documented) at patient's floor/unit and/or counseling patient: [place] [address] INT INP/OBS CARE 3/75MIN Patient Type Established Medical Decision Making Moderate Complexity Diagnoses Acute respiratory failure with hypoxia J96.01 Pneumonia J18.9 Hyponatremia E87.1 Elevated troponin R77.8 Hypomagnesemia E83.42 Abnormal thyroid stimulating hormone level R79.89 Hyperlipidemia E78.5 CAD (coronary artery disease) I25.10 Hypertension I10 Stroke I63.9 CVA mechanism: unspecified (10) Stroke CVA mechanism: unspecified Qualified Code(s): I63.9 - Cerebral infarction, unspecified
[2022-11-17] MEDS ORDERED: AZITHROMYCIN 500 MG in DEXTROSE 5% 250 ML IV STA (14:46)
[2022-11-17] MEDS ORDERED: guaiFENesin/DEXTROM SYRUP 100MG/10MG 5ML UDC PO ONE (15:24)
[2022-11-17 16:24] LABS: Allen Test Pos (Pos); Base Excess ABG 2.2 mEq/L (-9-1.8); HCO3 ABG 25 mmol/L (19-24); Oxygen Saturation ABG 97.3 % (90-95); PCO2 ABG 33 mmHg (35-46); PO2 ABG 75 mmHg (80-95); pH ABG 7.49 (7.35-7.45)
[2022-11-17] MEDS: MAGNESIUM SULFATE / D5W 1 GM/100 ML BAG IV SCH ×2 (16:45→19:06)
[2022-11-17] MEDS: ENOXAPARIN INJ 40 MG/0.4 ML SYR SQ SCH (18:27)
[2022-11-17 18:47] LABS: Adenovirus PCR Not Detected (NotDetected); Bordetella parapertussis PCR Not Detected (NotDetected); Bordetella pertussis PCR Not Detected (NotDetected); Chlamydia pneumoniae PCR Not Detected (NotDetected); Coronavirus 229E PCR Not Detected (NotDetected); Coronavirus CoV-2 (COVID19)PCR Not Detected (NotDetected); Coronavirus HKU1 PCR Not Detected (NotDetected); Coronavirus NL63 PCR Not Detected (NotDetected); Coronavirus OC43PCR Not Detected (NotDetected); Human Metapneumovirus PCR Not Detected (NotDetected); Influenza A PCR Not Detected (NotDetected); Influenza B PCR Not Detected (NotDetected); Mycoplasma pneumoniae PCR Not Detected (NotDetected); Parainfluenza Virus 1 PCR Not Detected (NotDetected); Parainfluenza Virus 2 PCR Not Detected (NotDetected); Parainfluenza Virus 3 PCR Not Detected (NotDetected); Parainfluenza Virus 4 PCR Not Detected (NotDetected); Respiratory Syncytial VirusPCR Not Detected (NotDetected); Rhinovirus/Enterovirus PCR Not Detected (NotDetected)
[2022-11-17] MEDS ORDERED: ALBUT/IPRATROP 3MG/0.5MG NEB 3 ML VIAL NEB SCH (19:00)
[2022-11-17] MEDS ORDERED: ALBUT/IPRATROP 3MG/0.5MG NEB 3 ML VIAL ONE (19:15)
[2022-11-17] MEDS: METOPROLOL SUCC 50MG EXT REL TAB PO SCH (19:52)
[2022-11-17] MEDS: AMPICILLIN/SULBACTAM SOD 3,000 MG in 0.9 % SODIUM CHLORIDE 100 ML IV SCH (21:15)
[2022-11-18] MEDS: AMPICILLIN/SULBACTAM SOD 3,000 MG in 0.9 % SODIUM CHLORIDE 100 ML IV SCH ×4 (02:48→20:13)
[2022-11-18] MEDS: LEVOTHYROXINE SODIUM 25 MCG TABLET PO SCH (05:28)
[2022-11-18] MEDS: METOPROLOL SUCC 50MG EXT REL TAB PO SCH ×2 (07:48→20:14)
[2022-11-18] MEDS: PANTOprazole 40 MG TAB PO SCH (07:48)
[2022-11-18] MEDS: ATORVASTATIN 40 MG TAB PO SCH (07:49)
[2022-11-18] MEDS: CLOPIDOGREL BISULFATE 75 MG TAB PO SCH (07:49)
[2022-11-18] MEDS: amLODIPine BESYLATE 5 MG TAB PO SCH (07:49)
[2022-11-18 09:58] LABS: Basophils # (auto) 0.01 K/uL (0-0.2); Basophils % (auto) 0.1 %; Eosinophils # (auto) 0.04 K/uL (0-0.50); Eosinophils % (auto) 0.5 %; Hematocrit (blood only) 31.6 % (37.0-47.0); Hemoglobin 10.4 g/dl (12.0-16.0); Immature Granulocytes # (auto) 0.03 K/uL (0.01-0.20); Immature Granulocytes % (auto) 0.4 %; Lymphocytes # (auto) 0.98 K/uL (1.2-3.4); Lymphocytes % (auto) 11.5 %; Mean Corpuscular Hemoglobin 28.6 pg (25.0-34.0); Mean Corpuscular Hgb Conc 32.9 g/dL (32.0-36.0); Mean Corpuscular Volume 86.8 fL (80.0-100.0); Mean Platelet Volume 10.4 fL (9.4-12.4); Monocytes # (auto) 0.77 K/uL (0.11-0.59); Neutrophils % (auto) 78.5 %; Platelet Count 246 K/uL (130-400); RDW Coefficient of Variation 13.8 % (11.5-14.5); Red Blood Count 3.64 M/uL (4.20-5.40); White Blood Count 8.53 K/ul (4.8-10.8)
[2022-11-18 10:13] LABS: Albumin Globulin Ratio 0.9 (0.9-2); Albumin Level 3.2 gm/dl (3.4-5.0); BUN Creatinine Ratio 17.2 (10-20); Calcium 8.7 mg/dl (8.6-10.3); Creatinine Clr Calc Pharmacy 39.1 ml/min; Est GFR (African American) 70.4 ml/min; Est GFR (Non-African American) 60.7 ml/min; Globulin 3.6 gm/dl (2.5-4.0); Magnesium 2.2 mg/dl (1.7-2.4); Potassium 3.5 mmol/L (3.5-5.1); Total Protein 6.8 gm/dl (6.0-8.3)
[2022-11-18 10:19] LABS: Troponin I High Sensitivity 15.6 pg/ml (0-14)
--- NOTE | 2022-11-18 11:44 | XCELERA ---
[id number] [id number]___[id number]
--- NOTE | 2022-11-18 12:34 | Electrocardiogram Report ---
Test Reason : Blood Pressure : / mmHG Vent. Rate : 098 BPM Atrial Rate : 098 BPM P-R Int : 196 ms QRS Dur : 078 ms QT Int : 334 ms P-R-T Axes : 018 -27 051 degrees QTc Int : 426 ms Poor data quality, interpretation may be adversely affected Normal sinus rhythm Possible Left atrial enlargement Low voltage QRS Nonspecific T wave abnormality Abnormal ECG When compared with ECG of 01-AUG-2018 17:19, T wave inversion more evident in Anterior leads Confirmed by Eulogio Barraza ([id number]) on 11/18/2022 12:33:50 PM Referred By: REFERRED SELF Confirmed By:Eulogio Barraza
--- NOTE | 2022-11-18 16:11 | Hospitalist Progress Note ---
Date of Service November 18, 2022 Assessment & Plan (1) Acute respiratory failure with hypoxia: Plan: Remains on 2LNC, continue to titrate to keep SpO2 at or above 92% -Incentive spirometry, flutter therapy, prn DuoNebs, and prn Robitussin DM -BioFire negative, procal normal but suspect bacterial CAP -Symptoms have been ongoing for 3 weeks but recently started developing yellow/green sputum production -Mild leukocytosis with left shift now reoslved -No pleuritic chest pain, hemodynamically stable, no signs of erythema or swelling on the BL LE's, will hold CTPE at this time as she has other causes for hypoxia at this time. -BNP mildly elevated but ECHO with preserved EF and Na+ improved with hydration from IV meds and increased po intake. Does not appear volume overloaded (2) Pneumonia: Plan: -S/P one dose of cefepime in the ED -Will continue with Daily azithromycin for atypical coverage and Unasyn for typical coverage -Blood cultures obtained -NGTD -with sputum production-order SPutum cx -follow CXR in 4-6 weeks for resolution (3) Hyponatremia: Plan: -Noted to be 130 on admission, now improved to 133 -likely from hypovolemia from poor po intake,dehydration over last 2-3 weeks of illness -Renal function is stable, no diuretics -no need for fluid restriction -follow BMP in AM (4) Elevated troponin: Plan: -Initially high sen trop minimally elevated at 14.3, then repeat ordered for today is stable at 15 -Patient is without chest pain and no acute changes on ECG -Likely due to demand from hypoxia -ECHO without WMAs (5) Hypomagnesemia: Plan: -Noted to be 1.6 on admission, replaced and now normal (6) Abnormal thyroid stimulating hormone level: Plan: -Continue levothyroxine TSH 01/2022 normal (7) Hyperlipidemia: Plan: -Continue statin (8) CAD (coronary artery disease): Plan: with a h/o CABG -Continue plavix, netoprolol, statin (9) Hypertension: Plan: -Stable BPs -Continue amlodipine and metoprolol (10) Stroke: Plan: -Continue plavix Plan -DVT PPX: BL SCD's and Sub-Q lovenox -Diet: Heart healthy Dispo-continued stay Admission and Anticipated Discharge Date Admission Date: November 17, 2022 Subjective Feeling much better than yesterday. Still coughing and bringing up sputum. Has pain in ribs from coughing. No MARX, has been OOB and ambukating to BR. Remains on O2 via NC. Appetite improved today Tele with NSR, rates 70-80s Physical Exam Constitutional: WD/WN, vitals as above Neck: trachea midline, no thyromegaly Respiratory: normal respiratory effort and + cough Auscultation: + crackles (left base); no rhonchi and no wheezes Cardiovascular: RRR, no murmur, no edema Chest (Breasts): Chest: normal inspection of chest Gastrointestinal (Abdomen): normal bowel sounds, soft, nontender, no hepatosplenomegaly Musculoskeletal: Extremities: extremities normal to inspection; no cyanosis and no clubbing Skin: no rashes, warm and dry Neurologic: moves all extremities and awake; no focal motor deficits Psychiatric: A+Ox3, euthymic affect Lymphatic: no lymphedema Results & Data Results & Data Vital Signs (Past 12 Hours) Vital Signs Temp Pulse Pulse Resp BP Pulse Ox O2 Del Method 11/18/22 15:52 37.3 C 84 20 118/62 96 Nasal Cannula 11/18/22 15:36 84 11/18/22 12:29 36.7 C 81 18 105/57 L 93 Nasal Cannula 11/18/22 11:59 18 11/18/22 11:19 36.9 C 79 26 H 107/57 L 94 Nasal Cannula 11/18/22 10:29 Nasal Cannula 11/18/22 07:30 73 11/18/22 07:19 36.9 C 86 26 H 116/65 95 Nasal Cannula O2 Flow Rate 11/18/22 15:52 2 11/18/22 15:36 11/18/22 12:29 2 11/18/22 11:59 11/18/22 11:19 1 11/18/22 10:29 1 11/18/22 07:30 11/18/22 07:19 3 Laboratory Results CBC, BMP, magnesium reviewed BCxs reviewed and no growth to date PG Care Time/CCT Total # of Minutes Spent Total Time Spent with Patient: Total time spent is greater than 50% in coordination of care (as documented) at patient's floor/unit and/or counseling patient: Coding Level of Care Code 29317 SUB INP/OBS CARE 2/35MIN Diagnoses Acute respiratory failure with hypoxia J96.01 Pneumonia J18.9 Hyponatremia E87.1 Elevated troponin R77.8 Hypomagnesemia E83.42 Abnormal thyroid stimulating hormone level R79.89 Hyperlipidemia E78.5 CAD (coronary artery disease) I25.10 Hypertension I10 Stroke I63.9 CVA mechanism: unspecified (10) Stroke CVA mechanism: unspecified Qualified Code(s): I63.9 - Cerebral infarction, unspecified
[2022-11-18] MEDS: ENOXAPARIN INJ 40 MG/0.4 ML SYR SQ SCH (16:44)
[2022-11-18] MEDS: AZITHROMYCIN 500 MG in DEXTROSE 5% 250 ML IV SCH (16:46)
[2022-11-19] MEDS: ALBUT/IPRATROP 3MG/0.5MG NEB 3 ML VIAL NEB PRN ×2 (02:09→15:13)
[2022-11-19] MEDS: AMPICILLIN/SULBACTAM SOD 3,000 MG in 0.9 % SODIUM CHLORIDE 100 ML IV SCH ×4 (02:45→20:10)
[2022-11-19] MEDS: LEVOTHYROXINE SODIUM 25 MCG TABLET PO SCH (05:46)
[2022-11-19 07:24] LABS: BUN Creatinine Ratio 18.3 (10-20); Calcium 8.4 mg/dl (8.6-10.3); Creatinine Clr Calc Pharmacy 51.9 ml/min; Est GFR (Non-African American) 77.7 ml/min; Potassium 3.3 mmol/L (3.5-5.1)
[2022-11-19 07:27] LABS: Basophils # (auto) 0.01 K/uL (0-0.2); Basophils % (auto) 0.1 %; Eosinophils # (auto) 0.07 K/uL (0-0.50); Hematocrit (blood only) 28.8 % (37.0-47.0); Hemoglobin 9.5 g/dl (12.0-16.0); Immature Granulocytes # (auto) 0.03 K/uL (0.01-0.20); Immature Granulocytes % (auto) 0.4 %; Lymphocytes # (auto) 1.18 K/uL (1.2-3.4); Lymphocytes % (auto) 16.8 %; Mean Corpuscular Hemoglobin 28.8 pg (25.0-34.0); Mean Corpuscular Volume 87.3 fL (80.0-100.0); Mean Platelet Volume 10.3 fL (9.4-12.4); Monocytes # (auto) 0.82 K/uL (0.11-0.59); Monocytes % (auto) 11.7 %; Neutrophils # (auto) 4.91 K/uL (1.40-6.50); Platelet Count 219 K/uL (130-400); RDW Coefficient of Variation 13.8 % (11.5-14.5); RDW Standard Deviation 44.2 fL (36.4-46.3); White Blood Count 7.02 K/ul (4.8-10.8)
[2022-11-19] MEDS: METOPROLOL SUCC 50MG EXT REL TAB PO SCH ×2 (08:08→20:10)
[2022-11-19] MEDS: CLOPIDOGREL BISULFATE 75 MG TAB PO SCH (08:08)
[2022-11-19] MEDS: PANTOprazole 40 MG TAB PO SCH (08:08)
[2022-11-19] MEDS: amLODIPine BESYLATE 5 MG TAB PO SCH (08:09)
[2022-11-19] MEDS: ATORVASTATIN 40 MG TAB PO SCH (08:09)
[2022-11-19] MEDS ORDERED: POTASSIUM CHLORIDE CRTAB 20 MEQ TABCR PO STA (08:29)
[2022-11-19] MEDS: guaiFENesin/DEXTROM SYRUP 100MG/10MG 5ML UDC PO PRN ×2 (09:55→17:28)
--- NOTE | 2022-11-19 12:55 | Hospitalist Progress Note ---
Date of Service November 19, 2022 Assessment & Plan (1) Acute respiratory failure with hypoxia: Plan: Remains on 2LNC, continue to titrate to keep SpO2 at or above 92% -continue Incentive spirometry, flutter therapy, prn DuoNebs, and prn Robitussin DM -BioFire negative, procal normal but suspect bacterial CAP -Symptoms have been ongoing for 3 weeks but recently started developing yellow/green sputum production -Mild leukocytosis with left shift now resolved -No pleuritic chest pain, hemodynamically stable, no signs of erythema or swelling on the BL LE's, will hold CTPE at this time as she has other causes for hypoxia at this time. -BNP mildly elevated but ECHO with preserved EF and Na+ improved with hydration from IV meds and increased po intake. Does not appear volume overloaded (2) Pneumonia: Plan: -S/P one dose of cefepime in the ED -clinically improving, no fevers, leukocytosis resolved, sputum production decreased -continue with azithromycin for atypical coverage and Unasyn for typical coverage -Blood cultures obtained -NGTD -SPutum cx pending -follow CXR in 4-6 weeks for resolution -continue flutter valve (3) Hyponatremia: Plan: -Noted to be 130 on admission, now improved to 135 -likely from hypovolemia from poor po intake,dehydration over last 2-3 weeks of illness -Renal function is stable, no diuretics -no need for fluid restriction -follow BMP in AM (4) Anemia: Plan: Hgb low at 9.5, MCV normal has a h/o anemia but not typically this low had EGD/colonoscopy in 2017 check Fe studies, B12, folate, TSH in AM (5) Elevated troponin: Plan: -Initially high sen trop minimally elevated at 14.3, then repeat stable at 15 -Patient is without chest pain and no acute changes on ECG -Likely due to demand ischemia from hypoxia -ECHO without WMAs (6) Hypomagnesemia: Plan: -Noted to be 1.6 on admission, replaced and now normal Hypokalemia-low today-replace with po KCl follow BMP in AM (7) Abnormal thyroid stimulating hormone level: Plan: -Continue levothyroxine TSH 01/2022 normal (8) Hyperlipidemia: Plan: -Continue statin (9) CAD (coronary artery disease): Plan: with a h/o CABG -Continue plavix, netoprolol, statin (10) Hypertension: Plan: -Stable BPs -Continue amlodipine and metoprolol (11) Stroke: Plan: history of such -Continue plavix Plan -DVT PPX: BL SCD's and Sub-Q lovenox -Diet: Heart healthy Dispo-continued stay, order PT/OT evals to assist with dc planning Admission and Anticipated Discharge Date Admission Date: November 17, 2022 Subjective Had a rough night as she lost her IV and had to get a new one. Still with some cough but no further mucus coming up. Also reports she accidentally took her O2 off last night and felt confused until they put it back on her. Tele with NSR, PACs, rates 70s-90s Physical Exam Constitutional: WD/WN, vitals as above Neck: trachea midline, no thyromegaly Respiratory: normal respiratory effort Auscultation: + crackles (left base); no rhonchi and no wheezes Cardiovascular: RRR, no murmur, no edema Chest (Breasts): Chest: normal inspection of chest Gastrointestinal (Abdomen): normal bowel sounds, soft, nontender, no h epatosplenomegaly Musculoskeletal: Extremities: extremities normal to inspection; no cyanosis and no clubbing Skin: no rashes, warm and dry Neurologic: moves all extremities and awake; no focal motor deficits Psychiatric: A+Ox3, euthymic affect Lymphatic: no lymphedema Results & Data Results & Data Vital Signs (Past 12 Hours) Vital Signs Temp Pulse Pulse Resp BP Pulse Ox O2 Del Method 11/19/22 08:00 Nasal Cannula 11/19/22 08:00 85 11/19/22 11:19 36.4 C L 76 18 106/57 L 96 Room Air 11/19/22 07:30 36.6 C 90 18 116/65 92 Nasal Cannula 11/19/22 03:41 36.8 C 86 18 112/65 93 Nasal Cannula 11/19/22 02:00 80 11/19/22 02:09 18 95 Nasal Cannula O2 Flow Rate 11/19/22 08:00 2 11/19/22 08:00 11/19/22 11:19 2 11/19/22 07:30 2 11/19/22 03:41 2 11/19/22 02:00 11/19/22 02:09 2 Laboratory Results CBC, BMP, sputum and blood cxs reviewed PG Care Time/CCT Total # of Minutes Spent Total Time Spent with Patient: Total time spent is greater than 50% in coordination of care (as documented) at patient's floor/unit and/or counseling patient: Coding Level of Care Code 53071 SUB INP/OBS CARE 2/35MIN Diagnoses Acute respiratory failure with hypoxia J96.01 Pneumonia J18.9 Hyponatremia E87.1 Anemia D64.9 Elevated troponin R77.8 Hypomagnesemia E83.42 Abnormal thyroid stimulating hormone level R79.89 Hyperlipidemia E78.5 CAD (coronary artery disease) I25.10 Hypertension I10 Stroke I63.9 CVA mechanism: unspecified (11) Stroke CVA mechanism: unspecified Qualified Code(s): I63.9 - Cerebral infarction, unspecified
[2022-11-19] MEDS ORDERED: COUGH DROP (SUGAR FREE) LOZ 24 LOZ/1 BOX BUCCAL PRN (16:18)
[2022-11-19] MEDS: ENOXAPARIN INJ 40 MG/0.4 ML SYR SQ SCH (17:28)
[2022-11-19] MEDS: AZITHROMYCIN 500 MG in DEXTROSE 5% 250 ML IV SCH (17:33)
[2022-11-20] MEDS: AMPICILLIN/SULBACTAM SOD 3,000 MG in 0.9 % SODIUM CHLORIDE 100 ML IV SCH ×3 (02:43→14:01)
[2022-11-20] MEDS: LEVOTHYROXINE SODIUM 25 MCG TABLET PO SCH (05:52)
[2022-11-20] MEDS: CLOPIDOGREL BISULFATE 75 MG TAB PO SCH (08:04)
[2022-11-20] MEDS: ATORVASTATIN 40 MG TAB PO SCH (08:05)
[2022-11-20] MEDS: amLODIPine BESYLATE 5 MG TAB PO SCH (08:05)
[2022-11-20] MEDS: METOPROLOL SUCC 50MG EXT REL TAB PO SCH ×2 (08:05→20:30)
[2022-11-20] MEDS: PANTOprazole 40 MG TAB PO SCH (08:05)
[2022-11-20 08:29] LABS: Basophils # (auto) 0.01 K/uL (0-0.2); Basophils % (auto) 0.2 %; Eosinophils # (auto) 0.15 K/uL (0-0.50); Eosinophils % (auto) 2.4 %; Hematocrit (blood only) 29.5 % (37.0-47.0); Hemoglobin 9.6 g/dl (12.0-16.0); Immature Granulocytes # (auto) 0.02 K/uL (0.01-0.20); Immature Granulocytes % (auto) 0.3 %; Lymphocytes # (auto) 1.27 K/uL (1.2-3.4); Lymphocytes % (auto) 20.3 %; Mean Corpuscular Hemoglobin 28.6 pg (25.0-34.0); Mean Corpuscular Hgb Conc 32.5 g/dL (32.0-36.0); Mean Corpuscular Volume 87.8 fL (80.0-100.0); Mean Platelet Volume 10.1 fL (9.4-12.4); Monocytes # (auto) 0.93 K/uL (0.11-0.59); Monocytes % (auto) 14.9 %; Neutrophils # (auto) 3.88 K/uL (1.40-6.50); Neutrophils % (auto) 61.9 %; Platelet Count 259 K/uL (130-400); RDW Coefficient of Variation 13.8 % (11.5-14.5); RDW Standard Deviation 44.4 fL (36.4-46.3); Red Blood Count 3.36 M/uL (4.20-5.40); White Blood Count 6.26 K/ul (4.8-10.8)
[2022-11-20 08:48] LABS: BUN Creatinine Ratio 17.2 (10-20); Calcium 8.8 mg/dl (8.6-10.3); Creatinine Clr Calc Pharmacy 57.5 ml/min; Est GFR (African American) 94.3 ml/min; Est GFR (Non-African American) 81.4 ml/min; Potassium 3.6 mmol/L (3.5-5.1)
[2022-11-20 09:01] LABS: Vitamin B12 1292 pg/ml (180-914)
[2022-11-20 09:06] LABS: Ferritin 173.1 ng/ml (8-388)
[2022-11-20] MEDS ORDERED: IRON SUCROSE 300 MG in SODIUM CHLORIDE 0.9% 250 ML IV ONE (12:06)
--- NOTE | 2022-11-20 12:08 | Hospitalist Progress Note ---
Date of Service November 20, 2022 Assessment & Plan (1) Acute respiratory failure with hypoxia: Plan: Remains on 2LNC but improved symptoms--> continue to titrate to keep SpO2 at or above 92% -continue Incentive spirometry, flutter therapy, prn DuoNebs, and prn Robitussin DM -BioFire negative, procal normal but suspect bacterial CAP -Symptoms have been ongoing for 3 weeks but recently started developing yellow/green sputum production -Mild leukocytosis with left shift now resolved -No pleuritic chest pain, hemodynamically stable, no signs of erythema or swelling on the BL LE's, will hold CTPE at this time as she has other causes for hypoxia at this time. -BNP mildly elevated but ECHO with preserved EF and Na+ improved with hydration from IV meds and increased po intake. Does not appear volume overloaded -will need 2 step walk test prior to discharge (2) Pneumonia: Plan: -S/P one dose of cefepime in the ED -clinically improving, no fevers, leukocytosis resolved, sputum production de creased, cough improving -continue with azithromycin for atypical coverage x 3 days of 500mg daily; continue and Unasyn for typical coverage and convert to po cefdinir to complete 7 day course on discharge -Blood cultures obtained -NGTD -SPutum cx pending but prelim light normal lucrecia -follow CXR in 4-6 weeks for resolution -continue flutter valve (3) Hyponatremia: Plan: -Noted to be 130 on admission, now improved to 137 -likely from hypovolemia from poor po intake,dehydration over last 2-3 weeks of illness -Renal function is stable (4) Anemia: Plan: Hgb low at 9.5, MCV normal has a h/o anemia but not typically this low had EGD/colonoscopy in 2017 Fe studies show transferrin sat very low at 8%, ferritin high at 175 but with acute infection/acute phase reactant B12, folate, TSH all normal She already takes po Fe tabs at home so will give IV Venofer 300mg x 1 today Needs outpt GI follow up for worsening Fe def to see if needs repeat scopes (5) Elevated troponin: Plan: -Initially high sen trop minimally elevated at 14.3, then repeat stable at 15 -Patient is without chest pain and no acute changes on ECG -Likely due to demand ischemia from hypoxia -ECHO without WMAs (6) Abnormal thyroid stimulating hormone level: Plan: -Continue levothyroxine TSH 01/2022 normal (7) Hyperlipidemia: Plan: -Continue statin (8) CAD (coronary artery disease): Plan: with a h/o CABG -Continue plavix, metoprolol, statin no need for further tele monitoring (9) Hypertension: Plan: -Stable BPs -Continue amlodipine and metoprolol (10) Stroke: Plan: history of such -Continue plavix Plan -DVT PPX: BL SCD's and Sub-Q lovenox -Diet: Heart healthy Dispo-continued stay, PT/OT evals to assist with dc planning but most likely plan to dc to home tomorrow with 2 step to determine O2 needs. Downgrade to med/surg Admission and Anticipated Discharge Date Admission Date: November 17, 2022 Subjective Feeling better, less cough. Denies SOB but RN reports pt is dyspneic with exertion. Still on O2. Is moving bowels, eating, OOB to chair. Tele with NSR, PACs Physical Exam Constitutional: WD/WN, vitals as above Neck: trachea midline, no thyromegaly Respiratory: normal respiratory effort and + cough Auscultation: + crackles (left lower and middle lung field,RLL); no rhonchi and no wheezes Cardiovascular: RRR, no murmur, no edema Chest (Breasts): Chest: normal inspection of chest Gastrointestinal (Abdomen): normal bowel sounds, soft, nontender, no hepatosplenomegaly Musculoskeletal: Extremities: extremities normal to inspection; no cyanosis and no clubbing Skin: no rashes, warm and dry Neurologic: moves all extremities and awake; no focal motor deficits Psychiatric: A+Ox3, euthymic affect Lymphatic: no lymphedema Results & Data Results & Data Vital Signs (Past 12 Hours) Vital Signs Temp Pulse Pulse Resp BP Pulse Ox O2 Del Method 11/20/22 11:16 36.9 C 70 20 106/67 97 Nasal Cannula 11/20/22 09:09 Nasal Cannula 11/20/22 08:00 78 11/20/22 07:48 36.7 C 84 20 125/70 94 Nasal Cannula 11/20/22 04:19 36.7 C 80 20 128/73 95 Nasal Cannula O2 Flow Rate 11/20/22 11:16 2 11/20/22 09:09 1.5 11/20/22 08:00 04/26/23 07:48 2 11/20/22 04:19 2 Laboratory Results CBC and BMP , iron studies, B12, folate, and TSH all reviewed PG Care Time/CCT Total # of Minutes Spent Total Time Spent with Patient: Total time spent is greater than 50% in coordination of care (as documented) at patient's floor/unit and/or counseling patient: Coding Level of Care Code 94038 SUB INP/OBS CARE 2/35MIN Diagnoses Acute respiratory failure with hypoxia J96.01 Pneumonia J18.9 Hyponatremia E87.1 Anemia D64.9 Elevated troponin R77.8 Abnormal thyroid stimulating hormone level R79.89 Hyperlipidemia E78.5 CAD (coronary artery disease) I25.10 Hypertension I10 Stroke I63.9 CVA mechanism: unspecified (10) Stroke CVA mechanism: unspecified Qualified Code(s): I63.9 - Cerebral infarction, unspecified
[2022-11-20] MEDS: AZITHROMYCIN 500 MG in DEXTROSE 5% 250 ML IV SCH (17:13)
[2022-11-20] MEDS: ENOXAPARIN INJ 40 MG/0.4 ML SYR SQ SCH (17:13)
[2022-11-20] MEDS ORDERED: AZITHROMYCIN 250 MG TAB PO ONE (18:00)
[2022-11-20] MEDS: ALBUT/IPRATROP 3MG/0.5MG NEB 3 ML VIAL NEB PRN (20:26)
[2022-11-20] MEDS: CEFDINIR 300 MG CAP PO SCH (20:31)
[2022-11-21] MEDS: LEVOTHYROXINE SODIUM 25 MCG TABLET PO SCH (05:41)
[2022-11-21] MEDS: PANTOprazole 40 MG TAB PO SCH (08:28)
[2022-11-21] MEDS: CEFDINIR 300 MG CAP PO SCH (08:28)
[2022-11-21] MEDS: amLODIPine BESYLATE 5 MG TAB PO SCH (08:28)
[2022-11-21] MEDS: CLOPIDOGREL BISULFATE 75 MG TAB PO SCH (08:28)
[2022-11-21] MEDS: ATORVASTATIN 40 MG TAB PO SCH (08:28)
[2022-11-21] MEDS: METOPROLOL SUCC 50MG EXT REL TAB PO SCH (08:28)
[2022-11-21] MEDS ORDERED: MULTIVITAMIN TAB PO SCH (09:00)
--- NOTE | 2022-11-21 10:31 | XRay Report ---
XR chest 2V PA/lateral CLINICAL HISTORY: f/u pneumonia COMPARISON STUDY: Chest radiograph November 17, 2022 and March 13, 2020. FINDINGS: There are median sternotomy wires. A hiatal hernia is noted. Trace bilateral pleural effusi ons are present. There is no pneumothorax. Left apical opacity represents scarring. Interstitial thic kening and bilateral opacities have slightly improved although this could be due to differences in [place]. There are persistent lower lung airspace opacities. IMPRESSION: 1. Persistent lower lung airspace opacities and interstitial thickening suggestive of pneumonia. Allowing for differences in technique, no significant change. 2. Trace bilateral pleural effusions. 3. Hiatal hernia. ACT 112: Negative or not required by law. Electronically signed by: Shayan Mendes M.D. 11/21/2022 10:28 AM
--- NOTE | 2022-11-21 10:54 | Discharge Summary ---
Date of Service November 21, 2022 Admission HPI Per Admitting Provider Bre is an 87 year old female with a PMH significant for CAD S/P bypass X 3 in 2010, previous CVA on Plavix, HTN, hyperlipidemia, hypothyroidism, and GERD who presented to the [facility] ED via EMS from the [facility] Walk-in clinic today due to ongoing SOB, URI symptoms and hypoxia. In the ED she was found to have a temperature of 37.8 C, hypoxic at 9% on RA, otherwise stable. Labs were significant for a WBC of 12, left shift of 9.58, lymphocyte count of 1.06, sodium of 130, mag of 1.6, initial high sen trop of 14.3, and covid 19 negative. Chest xray shows cardiomegaly with pulmonary vascular with interstitial coarse eli with a small left pleural effusion and left basilar consolidation. Prior to admission the patient was given a dose of cefepime. At the time of the exam the patient was lying in bed in no acute distress with her family sitting bedside. She started to develop progressive SOB, a non- productive cough, and congestion approximately 3 weeks ago. Over the past 3 days or so she has noticed yellow/green sputum production along with increased SOB and fatigue. Her family took her to a [facility] acute care clinic this am and while doing an ambulatory pulse oximetry test she fell into the 80's on RA. She does not use O2 or CPAP at home and does not have a history of asthma, COPD, or tobacco use. She denies chest pain, abd pain, nausea, vomiting, diarrhea, dysuria, hematuria, melena, LE swelling and recent trauma. Of note, she states that her appetite has been very poor. She has mainly been drinking ice water. Since receiving a DuoNeb treatment by EMS her breathing feels somewhat improved compared to this am. She took all of her am meds today. We had a long discussion regarding code status with she and her family She wishes to be a conditional code and would only want a trial of intubation if needed. She would not want chest compressions or defibrillation in the event of cardiac arrest. Her children are her POA's. Please refer to Dr. Alatorre's attestation for any changes to the treatment plan Principal Diagnosis Community acquired pneumonia Acute respiratory failure with hypoxia Demand ischemia Chronic anemia Discharge Exam Constitutional WD/WN, vitals as above Neck trachea midline, no thyromegaly Respiratory normal respiratory effort and + cough Auscultation: + crackles (left lower and middle lung field,RLL); no rhonchi and no wheezes Cardiovascular RRR, no murmur, no edema Chest (Breasts) Chest: normal inspection of chest Gastrointestinal (Abdomen) normal bowel sounds, soft, nontender, no hepatosplenomegaly Musculoskeletal Extremities: extremities normal to inspection; no cyanosis and no clubbing Skin no rashes, warm and dry Neurologic moves all extremities and awake; no focal motor deficits Psychiatric A+Ox3, euthymic affect Lymphatic no lymphedema Discharge Data Allergies Allergy/AdvReac Type Severity Reaction Status Date / Time Iodinated Contrast Media Allergy Hives Verified 03/06/22 11:32 [Iodinated Contrast- Oral and IV Dye] Consultations 11/17/22 14:42 ED Decision to Admit Stat Ordered Studies ECHO Hospital Course (1) Acute respiratory failure with hypoxia: Remains on 2LNC but improved symptoms-->needs 2LNC with exertion on discharge as per 2 step walk test with Respiratory therapy -continue Incentive spirometry, flutter therapy, albuterol HFA prn, and prn Robitussin DM -BioFire negative, procal normal but suspect bacterial CAP -Symptoms have been ongoing for 3 weeks but recently started developing yellow/green sputum production -Mild leukocytosis with left shift now resolved, appetite and cough improved, overall much improved -No pleuritic chest pain, hemodynamically stable, no signs of erythema or swelling on the BL LE's,no need for CTPE at this time as she has other causes for hypoxia -BNP mildly elevated but ECHO with preserved EF and Na+ improved with hydration from IV meds and increased po intake. Does not appear volume overloaded (2) Pneumonia: -S/P one dose of cefepime in the ED -clinically improving, no fevers, leukocytosis resolved, sputum production decreased, cough improving -received azithromycin for atypical coverage x 3 days of 500mg daily;received IV Unasyn for typical coverage and converted to po cefdinir to complete 7 day course on discharge -Blood cultures obtained -NGTD -SPutum cx light normal lucrecia -repeat CXR 11/21 stable to improved, bilat PNA, small pleural effusions -follow CXR in 4-6 weeks for resolution -continue flutter valve (3) Hyponatremia: -Noted to be 130 on admission, now normal -likely from hypovolemia from poor po intake,dehydration over last 2-3 weeks of illness -Renal function is stable (4) Anemia: Hgb low at 9.5, MCV normal has a h/o anemia but not typically this low had EGD/colonoscopy in 2017 Fe studies show transferrin sat very low at 8%, ferritin high at 175 but with acute infection/acute phase reactant B12, folate, TSH all normal She already takes po Fe tabs at home so gave IV Venofer 300mg x 1 here Needs outpt GI follow up for worsening Fe def to see if needs repeat scopes Follows with Hematology as well (5) Elevated troponin: -Initially high sen trop minimally elevated at 14.3, then repeat stable at 15 -Patient is without chest pain and no acute changes on ECG -Likely due to demand ischemia from hypoxia -ECHO without WMAs (6) Abnormal thyroid stimulating hormone level: -Continue levothyroxine TSH 01/2022 normal (7) Hyperlipidemia: -Continue statin (8) CAD (coronary artery disease): with a h/o CABG -Continue plavix, metoprolol, statin (9) Hypertension: -Stable BPs -Continue amlodipine and metoprolol (10) Stroke: history of such -Continue plavix Plan -DVT PPX: BL SCD's and Sub-Q lovenox -Diet: Heart healthy Dispo-stable for dc to home. PT/OT evals recommend home. Needs 2LNC O2 discussed care with daughter at bedside on day of discharge Total Time Total Time Spent Total Time Spent (In Minutes): 35 min Discharge Plan Discharge Items Patient Disposition: Home - Self-Care Reason For Visit: SOB Discharge Diagnosis: Pneumonia, Hypoxia Condition on Discharge: Good Activity: As commented below Lifting: Gradually increase as tolerated Bathing: No limitations Exercise/Sports: Gradually increase as tolerated Weightbearing: Full weightbearing Non-emergency contact: Primary Care Provider Call non-emergency contact if: you have any medication questions and your symptoms worsen Follow-up/Referrals: Eulogio Sifuentes MD [Primary Care Provider] - 11/28/22 10:30 am Diet: Heart Healthy Addtl Attending Provider Instructions: Please finish out 3 more days of the antibiotic called cefdinir for your pneumonia. You should have a chest xray in 4 weeks to ensure resolution of your pneumonia. You should remain on the supplemental oxygen at 2L via the nasal cannula until your doctor tells you it is safe to stop using it. Pending Studies at Discharge: Yes Studies:: Final blood culture results-no growth to date Stand-Alone Forms: [facility] [place], Smoking Cessation Medications and DC Order Prescriptions: New dextromethorphan-guaifenesin 10-100 mg/5 mL Syrup 5 ml PO Q6H PRN (Reason: cough) Qty: 237 0RF Rx Instructions: OTC cefdinir 300 mg Capsule 300 mg PO BID Qty: 6 0RF albuterol sulfate 90 mcg/actuation HFA aerosol inhaler 2 inh inhalation Q6H PRN (Reason: cough or weezing) Qty: 8.5 0RF Continued (DME) Contour Next Test Strips Strip See Rx Instructions .Route Qty: 100 3RF Rx Instructions: Test once daily multivitamin [Daily Multi-Vitamin] tablet 1 tab PO DAILY metoprolol succinate 50 mg tablet extended release 24 hr 50 mg PO BID Qty: 180 3RF atorvastatin [Lipitor] 40 mg tablet 40 mg PO QAM clopidogrel 75 mg tablet 75 mg PO QAM amlodipine 5 mg tablet 10 mg PO QAM Rx Instructions: TAKE 2 TABLETS BY MOUTH IN THE MORNING pantoprazole 20 mg tablet,delayed release (DR/EC) 20 mg PO QAM levothyroxine 25 mcg Tablet 25 mcg PO DAILYBB Discharge Orders: Discharge Order (Routine); Ordered 11/21/22 Ordered By: Sania Moreno Admission Data Admit Date/Time: 11/17/22 14:46 Attending Provider: Sania Moreno Admit Provider: Sourav Alatorre Primary Care Provider: Eulogio Sifuentes Other Providers: Sourav Alatorre Coding Level of Care Code 76906 INP/OBS DISCH >30 MIN Diagnoses Acute respiratory failure with hypoxia J96.01 Pneumonia J18.9 Hyponatremia E87.1 Anemia D64.9 Elevated troponin R77.8 Abnormal thyroid stimulating hormone level R79.89 Hyperlipidemia E78.5 CAD (coronary artery disease) I25.10 Hypertension I10 Stroke I63.9 CVA mechanism: unspecified
== END 2022-11-21 12:42 | disposition home or self-care (01) | DRG 193 ==
LOC: ED 11:50 → 2N 14:46 → SUATTDRO 14:46 → 2N 16:51